=== PATIENT | male | born 2000 | race African-American/Black ===

== ENCOUNTER 2022-11-29 00:50 | Inpatient (IN) | payer OTHER, SELFPAY ==
--- OUTSIDE RECORDS SUMMARY | 2022-11-29 00:52 | XMS_ITS | Continuity of Care Document ---
:1999 Author Organization [facility] Adult Address Unavailable , Care Team Providers Name Role Phone David Rodas Primary Care Physician Encounter [facility] [place] Date(s): 02/10/22 - 02/17/22 [facility] Encounter Diagnosis Acute diarrhea (Discharge Diagnosis) - 02/10/22 New onset seizure (Discharge Diagnosis) - 02/10/22 Attending Physician: Lev Herrera MD Allergies, Adverse Reactions, Alerts No Known Allergies Medications risperiDONE 1 mg oral tablet TAKE 1/2 TABLET BY MOUTH EVERY MORNING AND 1 TABLET EVERY NIGHT AT BEDTIME Start Date: 02/06/22 Status: Orderedsertraline 100 mg oral tablet TAKE 1 TABLET BY MOUTH TWICE DAILY IN THE MORNING AND AT BEDTIME Start Date: 02/06/22 Status: Ordered Problem List Condition Effective Dates Status Health Status Informant Anxiety(Confirmed) Active Bipolar illness(Confirmed) Active High triglycerides(Confirmed) Active Lactic acidosis(Confirmed) Active Obese class I(Confirmed) Active MDD (major depressive disorder), Active recurrent episode, mild(Confirmed) Seizure(Confirmed) Active Diagnosis Diagnosis Type Effective Dates Health Status Clinical In formant Service Acute diarrhea Discharge 02/10/22 Diagnosis New onset Discharge 02/10/22 seizure Diagnosis Vital Signs Most recent to oldest [Reference Range]: 1 2 Height 184 cm 184 cm (02/10/22 3:36 PM) (02/10/22 3:05 PM) Weight 112.3 kg (02/10/22 3:05 PM) Oxygen Saturation [94-100 %] 98 % (02/10/22 3:05 PM) Pulse Rate [55-90 bpm] 117 bpm *H* (02/10/22 3:05 PM) Body Mass Index [18.5-24.99] 33.17 *>HHI* (02/10/22 3:05 PM) Blood Pressure [90-138/55-84 mm Hg] 112/74 mm Hg 146/ 74 mm Hg (02/10/22 3:36 PM) *H* (02/10/22 3:05 PM) Blood pressure sites Arm, left (02/10/22 3:05 PM) Social History Social History Type Response Smoking Status Never (less than 100 in life time) entered on: 01/25/21 Sex
--- OUTSIDE RECORDS SUMMARY | 2022-11-29 00:53 | XMS_ITS | Continuity of Care Document ---
:1999 Author Organization [facility] Address [address] [place] [address]- Care Team Providers Name Role Phone David Rodas Primary Care Physician [place] [facility] [place] 10[place]28/22 [facility] [address] [place] [address]- Attending Physician: Nieves Morfin Admitting Physician: Nieves Morfin Referring Physician: Nieves Morfin Allergies, Adverse Reactions, Alerts No Known Allergies Medications benztropine 0.5 mg oral tablet 0.5 mg, 1, tablet, By Mouth, 2 times a day, TAKE ONE TABLET BY MOUTH TWO TIMES DAILY, # 60 tablet, Refills 0, Tot. Refills 0, Maintenance, 10/20/22 13:08:00 EST, Route to Pharmacy Electronically, [facility], Partial fill upon patient req... Start Date: 10/20/22 Status: Orderedergocalciferol 30408 iu oral capsule 50,000 International_Units, 1, capsule, By Mouth, Every week, # 12 capsule, Refills 0, Tot. Refills 0, Maintenance, 10/13/22 9:50:00 EST, Route to Pharmacy Electronically, [email or web address] #[id number], Partial fill upon patient request if the prescript... Start Date: 10/13/22 Stop Date: 01/05/23 Status: Orderedlansoprazole 30 mg oral enteric coated capsule 1 capsule = 30 mg, By Mouth, Daily, # 90 capsule, 0 Refills, Maintenance, 09/28/22 14:14:00 EST, EC Capsule, [email or web address] #[id number], Partial fill upon patient request if the prescription is for a schedule II opioid drug., 184, cm, 09/28/22 13:24:... Start Date: 09/28/22 Status: OrderedLORazepam 1 mg oral tablet 1 tablet = 1 mg, By Mouth, 2 times a day, PRN Anxiety, TAKE ONE TABLET BY MOUTH UP TO TWO TIMES DAILY NEEDED FOR ANXIETY, # 14 tablet, 0 Refills, Maintenance, 10/20/22 13:07:00 EST, [facility], Partial fill upon patient reques... Start Date: 10/20/22 Stop Date: 10/27/22 Status: OrderedOmeprazole By Mouth, Daily, OTC, 0 Refills, Maintenance, 09/19/22 8:30:00 EST, Partial fill upon patient request if the prescription is for a schedule II opioid drug. Start Date: 09/19/22 Status: OrderedPEG-3350 with Electrolytes (Eqv-NuLYTELY) oral powder for reconstitution See Instructions, Please follow instructions from GI; NOT the instructions in the package insert., #1 kit, 0 Refills, Maintenance, 09/28/22 14:14:00 EST, [facility] #[id number], Okay to substitute with any gallon bowel prep., Please follow instr... Start Date: 09/28/22 Status: OrderedrisperiDONE 1 mg oral tablet 0.5 mg, 0.5, tablet, By Mouth, 2 times a day, TAKE HALF TABLET (0.5MG) BY MOUTH TWO TIMES DAILY, # 14 tablet, Refills 1, Tot. Refills 1, Maintenance, 10/20/22 13:56:00 EST, Route to Pharmacy Electronically, [facility], Partial fill upon... Start Date: 10/20/22 Stop Date: 11/17/22 Status: Orderedsertraline 50 mg oral tablet 1 tablet = 50 mg, By Mouth, Daily, TAKE ONE TABLET BY MOUTH DAILY, # 14 tablet, 1 Refills, Maintenance, 10/20/22 13:07:00 EST, Tablet, [facility], Partial fill upon patient request if theprescription is for a schedule II opioid drug.,... Start Date: 10/20/22 Stop Date: 11/17/22 Status: Ordered Problem List Condition Confirmation Course Effective Dates Status Health I nformant Status Anxiety Confirmed Active Bipolar illness Confirmed Active COVID-191 Confirmed 10/20/22 Active High triglycerides Confirmed Active Lactic acidosis Confirmed Active MDD (major Confirmed Active depressive disorder), recurrent episode, mild Seizure Confirmed Active 1Problem added by Discern Expert Social History Social History Type Response Smoking Status Never (less than 100 in life time) entered on: 01/25/21 Sex Patient Care team information Care Team PersonnelName: David Rodas Position: S PCO Associate Professional Member Role: PCP Address: Address: [address] [place] [address] Care Team Related PersonsName: STEVEN HERRERA Address: home [address] Name: STEVEN HERRERA Address: home [address] [place] [address] Name: DEZ HERRERA Address: [place] [address]
--- OUTSIDE RECORDS SUMMARY | 2022-11-29 00:53 | XMS_ITS | Continuity of Care Document ---
:1999 Author Organization [facility] Adult Address Unavailable , Care Team Providers Name Role Phone David Rodas Primary Care Physician [place] [facility] [place] 03/28/22 - 04/27/22 [facility] Allergies, Adverse Reactions, Alerts No Known Allergies [...] disorder), Active recurrent episode, mild(Confirmed) Seizure(Confirmed) Active Social History Social History Type Response Smoking Status Never (less than 100 in life time) entered on: 01/25/21 Sex
--- OUTSIDE RECORDS SUMMARY | 2022-11-29 00:53 | XMS_ITS | Continuity of Care Document ---
:1999 Author Organization [facility] Address [address] [place] [address]- Care Team Providers Name Role Phone David Rodas Primary Care Physician [place] [facility] [place] 11/12/22 [facility] [address] [place] [address]- [place] Allergies, Adverse Reactions, Alerts No Known Allergies Medications benztropine 0.5 mg oral tablet 0.5 mg, 1, tablet, By Mouth, 2 times a day, TAKE ONE TABLET BY MOUTH TWO TIMES DAILY, # 60 tablet, Refills 0, Tot. Refills 0, Maintenance, 10/20/22 13:08:00 EST, Route to Pharmacy Electronically, [facility], Partial fill upon patient req... Start Date: 10/20/22 Status: Orderedergocalciferol 84574 iu oral capsule 50,000 International_Units, 1, capsule, By Mouth, Every week, # 12 capsule, Refills 0, Tot. Refills 0, Maintenance, 10/13/22 9:50:00 EST, Route to Pharmacy Electronically, [facility] #[id number], Partial fill upon patient request if the prescript... Start Date: 10/13/22 Stop Date: 01/05/23 Status: Orderedlansoprazole 30 mg oral enteric coated capsule 1 capsule = 30 mg, By Mouth, Daily, # 90 capsule, 0 Refills, Maintenance, 09/28/22 14:14:00 EST, EC Capsule, [facility] #[id number], Partial fill upon patient request if the [...] 0 Refills, Maintenance, 10/20/22 13:07:00 EST, [facility] fill upon patient reques... Start [...] kit, 0 Refills, Maintenance, 09/28/22 14:14:00 EST, [facility] #[id number], Okay to substitute with any gallon bowel prep., Please follow instr... Start Date: 09/28/22 Status: OrderedrisperiDONE 1 mg oral tablet 0.5 mg, 0.5, tablet, By Mouth, 2 times a day, TAKE HALF TABLET (0.5MG) BY MOUTH TWO TIMES DAILY, # 14 tablet, Refills 1, Tot. Refills 1, Maintenance, 10/20/22 13:56:00 EST, Route to Pharmacy Electronically, [facility], Partial fill upon... Start Date: 10/20/22 Stop Date: 11/17/22 Status: Orderedsertraline 50 mg oral tablet 1 tablet = 50 mg, By Mouth, Daily, TAKE ONE TABLET BY MOUTH DAILY, # 14 tablet, 1 Refills, Maintenance, 10/20/22 13:07:00 EST, Tablet, [facility], Partial fill upon patient request [...] information Care Team PersonnelName: David Rodas Position: [facility] PCO Associate Professional Member Role: PCP Address: Address: [address] [place] [address] Care Team Related PersonsName: STEVEN HERRERA Address: [address] Name: STEVEN HERRERA Address: home [address] [place] [address] Name: DEZ HERRERA Address: home [address] [place] [address]
--- OUTSIDE RECORDS SUMMARY | 2022-11-29 00:53 | XMS_ITS | Continuity of Care Document ---
:1999 Author Organization [facility] Address [address] [place] [address]- Care Team Providers Name Role Phone David Rodas Primary Care Physician En[place] [facility] [place] Date(s): 02/05/22 - 02/07/[address] [address] Encounter Diagnosis Altered mental status (Final) - 02/05/22 Lactic acidosis (Final) - 02/05/22 Tachycardia (Final) - 02/05/22 Discharge Disposition: A-D/C Home Attending Physician: Harmony HICKEY, Fallon Murphy Admitting Physician: Cristal Larsen MD Referring Physician: Not on Staff, Referring MD Allergies, Adverse Reactions, Alerts No Known [...] disorder), Active recurrent episode, mild(Confirmed) Seizure(Confirmed) Active Results Orders for Microbiology Reports Name Date Blood Culture 02/05/22 Blood Culture #2 02/05/22 Microbiology Reports TEST:Blood Culture, Second Order STATUS:Unauthenticated BODY SITE: SOURCE:Blood COLLECTED DATE/TIME:02/05/22 8:56 PMBlood Culture, Second Order SPECIMEN DESCRIPTION : BLOOD RTHND SPECIAL REQUESTS : NONE CULTURE : NO GROWTH AFTER 48 HOURS REPORT STATUS : PRELIMINARY REPORT TEST:Blood Culture STATUS:Unauthenticated BODY SITE: SOURCE:Blood COLLECTED DATE/TIME:02/05/22 8:50 PMBlood Culture SPECIMEN DESCRIPTION : BLOOD LTHND SPECIAL REQUESTS : NONE CULTURE : NO GROWTH AFTER 48 HOURS REPORT STATUS : PRELIMINARY REPORT Radiology Reports Exam Date Time Procedure Performing Provider Status 02/05/22 8:30 PM Chest Portable Maria Victoria Maher; Auth (Verified) Notes:(Chest Portable) Reason For Exam: Shortness of BreathRESULT: Chest Portable Chest Portable Hx of Present Illness: 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 FINDINGS: LINES AND TUBES: None. LUNGS AND PLEURA: Low lung volumes with mild basilar atelectasis. Lungs are otherwise clear with no consolidation. No pleural effusion. No pneumothorax. HEART, MEDIASTINUM AND OLEG: Heart is normal in size. Normal upper mediastinal and hilar contour. BONES AND SOFT TISSUES: No acute abnormality. IMPRESSION: No acute abnormality. WSN: [id number] Ordering Physician: Baljinder Abreu Dictated By: Guero Shah MD Dictated Date/Time: 02/05/22 8:36 pm Reviewed By: Guero Shah MD Signed By: Guero Shah MD Signed Date/Time: 02/05/22 8:36 pm Transcribed By: ELIE Transcribed Date/Time: 02/05/22 8:33 pm Vital Signs Most recent to oldest 1 2 3 [Reference Range]: Height 184 cm 184 cm (02/07/22 4:37 PM) (02/07/22 4:25 PM) Weight 113 kg (02/07/22 4:25 PM) Oxygen Saturation [94-100 %] 97 % 97 % 98 % (02/07/22 4:37 PM) (02/07/22 3:20 PM) (02/07/22 12: 39 PM) Pulse Rate [55-90 bpm] 96 bpm 134 bpm 114 bpm *H* *H* *H* (02/07/22 4:37 PM) (02/07/22 3:20 PM) (02/07/22 12: 39 PM) Body Mass Index [18.5-24.99] 33.38 *>HHI* (02/07/22 4:25 PM) Blood Pressure [90-138/55-84 130/62 mm Hg 140/93 mm Hg 146 /96 mm Hg mm Hg] (02/07/22 4:37 PM) *H* *H* (02/07/22 3:20 PM) (02/07/22 12:39 PM) Respiratory Rate [16-30 18 br/min 24 br/min 20 br/mi n br/min] (02/07/22 4:37 PM) (02/07/22 3:20 PM) (02/07/22 12: 39 PM) Temperature [96.8-100.4 DegF] 98.3 DegF 98.2 DegF 98 .1 DegF (02/07/22 4:37 PM) (02/07/22 12:39 PM) (02/07/22 9: 30 AM) Mode of Delivery (Oxygen) Room air Room air Room a ir (02/07/22 4:37 PM) (02/07/22 3:20 PM) (02/07/22 12: 39 PM) Blood pressure sites Arm, left Arm, right Arm, right (02/07/22 4:37 PM) (02/07/22 3:20 PM) (02/07/22 12: 39 PM) Temperature Route Oral Oral Oral (02/07/22 4:37 PM) (02/07/22 12:39 PM) (02/07/22 9: 30 AM) Dry Weight 113 kg (02/07/22 4:25 PM) Social History Social History Type Response Smoking Status Never (less than 100 in life time) entered on: 01/25/21 Sex
--- OUTSIDE RECORDS SUMMARY | 2022-11-29 00:53 | XMS_ITS | Continuity of Care Document ---
:1999 Author Organization [facility] Address [address] [place] [address]- Care Team Providers Name Role Phone David Rodas Primary Care Physician Encounter [facility] [place] Date(s): 10/12/22 - 11/11/22 [facility] [address] [place] [address]- Attending Physician: Nieves Morfin Admitting Physician: Nieves Morfin Referring Physician: [id number] Allergies, Adverse Reactions, Alerts No Known Allergies Medications benztropine 0.5 mg oral tablet 0.5 mg, 1, tablet, By Mouth, 2 times a day, TAKE ONE TABLET BY MOUTH TWO TIMES DAILY, # 60 tablet, Refills 0, Tot. Refills 0, Maintenance, 10/20/22 13:08:00 EST, Route to Pharmacy Electronically, [facility], Partial fill upon patient req... Start Date: 10/20/22 Status: Orderedergocalciferol 32421 iu oral capsule 50,000 International_Units, 1, capsule, By Mouth, Every week, # 12 capsule, Refills 0, Tot. Refills 0, Maintenance, 10/13/22 9:50:00 EST, Route to Pharmacy Electronically, [facility] #[id number], Partial fill upon patient request if the prescript... Start Date: 10/13/22 Stop Date: 01/05/23 Status: Orderedlansoprazole 30 mg oral enteric coated capsule 1 capsule = 30 mg, By Mouth, Daily, # 90 capsule, 0 Refills, Maintenance, 09/28/22 14:14:00 EST, EC Capsule, [facility] #[id number], Partial fill upon patient request if the [...] 0 Refills, Maintenance, 10/20/22 13:07:00 EST, [facility] fill upon patient reques... Start [...] kit, 0 Refills, Maintenance, 09/28/22 14:14:00 EST, [facility][id number], Okay to substitute with any gallon bowel prep., Please follow instr... Start Date: 09/28/22 Status: OrderedrisperiDONE 1 mg oral tablet 0.5 mg, 0.5, tablet, By Mouth, 2 times a day, TAKE HALF TABLET (0.5MG) BY MOUTH TWO TIMES DAILY, # 14 tablet, Refills 1, Tot. Refills 1, Maintenance, 10/20/22 13:56:00 EST, Route to Pharmacy Electronically, [facility], Partial fill upon... Start Date: 10/20/22 Stop Date: 11/17/22 Status: Orderedsertraline 50 mg oral tablet 1 tablet = 50 mg, By Mouth, Daily, TAKE ONE TABLET BY MOUTH DAILY, # 14 tablet, 1 Refills, Maintenance, 10/20/22 13:07:00 EST, Tablet, [facility], Partial fill upon patient request if theprescription is for a schedule II opioid drug.,... Start Date: 10/20/22 Stop Date: 11/17/22 Status: Ordered Problem List Condition Confirmation Course Effective Dates Status Health I nformant Status Anxiety Confirmed Active Bipolar illness Confirmed Active COVID-191 Confirmed 1/6/23 Active High triglycerides Confirmed Active Lactic acidosis Confirmed Active MDD (major Confirmed Active depressive disorder), recurrent episode, mild Seizure Confirmed Active 1Problem added by Discern Expert Social History Social History Type Response Smoking Status Never (less than 100 in life time) entered on: 01/25/21 Sex Note Event Display: Laboratory Result Scanned Authored Date: MR Brain Event Display: MRI Head Authored Date: Patient Care team information Care Team PersonnelName: David Rodas Position: [facility] PCO Associate Professional Member Role: PCP Address: Address: [address] [place] [address] Care Team Related PersonsName: STEVEN HERRERA Address: home [address] [place] [address] [place] Name: STEVEN HERRERA Address: home [address] [place] [address] Name: DEZ HERRERA Address: [place] [address]
--- OUTSIDE RECORDS SUMMARY | 2022-11-29 00:53 | XMS_ITS | Continuity of Care Document ---
:1999 Author Organization [facility] Address [address] [place] [address]- Care Team Providers Name Role Phone David Rodas Primary Care Physician Encounter [facility] [place] Date(s): 01/25/21 - 02/01/21 [facility] [address] [place] [address]- Encounter Diagnosis BMI 33.0-33.9,adult (Discharge Diagnosis) - 01/25/21 Annual visit for general adult medical examination with abnormal findings (Discharge Diagnosis) - 01/25/21 MDD (major depressive disorder), recurrent episode, mild (Discharge Diagnosis) - 01/25/21 Tinea versicolor (Discharge Diagnosis) - 01/25/21 High triglycerides (Discharge Diagnosis) - 01/25/21 Attending Physician: David Rodas Allergies, Adverse Reactions, Alerts Substance Reaction Severity Status NKA Active Medications ketoconazole 2% topical shampoo 1 application, Topically, Once, Three times weekly, # 120 mL, 0 Refills, Soft Stop, 01/25/21 8:31:00[facility][id number], Partial fill upon patient request if the prescription is for a schedule II opioid drug., 1 application Topi... Start Date: 01/25/21 Status: OrderedraNITIdine 150 mg oral capsule 1 capsule = 150 mg, By Mouth, 2 times a day, # 28 capsule, 0 Refills, Maintenance, 11/30/18 11:46:18EST, Capsule Start Date: 11/30/18 Stop Date: 12/14/18 Status: OrderedrisperiDONE 1 mg oral tablet 1 mg, 1, tablet, By Mouth, 2 times a day, # 60 tablet, Refills 0, Maintenance, 01/25/21 8:20:00 EDT,Partial fill upon patient request if the prescription is for a schedule II opioid drug. Start Date: 01/25/21 Status: Orderedsertraline 100 mg oral tablet 1 tablet = 100 mg, By Mouth, 2 times a day, 0 Refills, Maintenance, 01/25/21 8:06:00 EDT, Partial fill upon patient request if the prescription is for a schedule II opioid drug. Start Date: 01/25/21 Status: OrderedZofran 4 mg oral tablet 1 tablet = 4 mg, By Mouth, Every 8 hours, PRN Nausea & Vomiting, # 9 tablet, 0 Refills, Maintenance, 11/30/18 11:45:49 EST, Tablet Start Date: 11/30/18 Stop Date: 12/03/18 Status: Ordered Problem List Condition Effective Dates Status Health Status Informant High triglycerides(Confirmed) Active MDD (major depressive disorder), Active recurrent episode, mild(Confirmed) Diagnosis Diagnosis Type Effective Dates Health Clinical Infor mant Status Service Tinea versicolor Discharge 01/25/21 Diagnosis High triglycerides Discharge 01/25/21 Diagnosis MDD (major Discharge 01/25/21 depressive Diagnosis disorder), recurrent episode, mild BMI 33.0-33.9,adult Discharge 01/25/21 Diagnosis Annual visit for Discharge 01/25/21 general adult Diagnosis medical examination with abnormal findings Vital Signs Most recent to oldest [Reference Range]: 1 Height 183.5 cm (01/25/21 8:03 AM) Weight 114.2 kg (01/25/21 8:03 AM) Oxygen Saturation [94-100 %] 98 % (01/25/21 8:03 AM) Pulse Rate [55-90 bpm] 113 bpm *H* (01/25/21 8:03 AM) Body Mass Index [18.5-24.99] 33.92 *>HHI* (01/25/21 8:03 AM) Blood Pressure [90-138/55-84 mm Hg] 120/82 mm Hg (01/25/21 8:03 AM) Mode of Delivery (Oxygen) Room air (01/25/21 8:03 AM) Blood pressure sites Arm, right (01/25/21 8:03 AM) Social History Social History Type Response Smoking Status Never (less than 100 in life time) entered on: 01/25/21 Sex
--- OUTSIDE RECORDS SUMMARY | 2022-11-29 00:53 | XMS_ITS | Continuity of Care Document ---
:1999 Author Organization [facility] Address [address] [place] [address]- Care Team Providers Name Role Phone David Rodas Primary Care Physician [place] [facility] [place] 10[place]22 [facility] [address] [place] [address]- Allergies, Adverse Reactions, Alerts No Known Allergies Medications benztropine 0.5 mg oral tablet 0.5 mg, 1, tablet, By Mouth, 2 times a day, TAKE ONE TABLET BY MOUTH TWO TIMES DAILY, # 60 tablet, Refills 0, Tot. Refills 0, Maintenance, 10/20/22 13:08:00 EST, Route to Pharmacy Electronically, [facility], Partial fill upon patient req... Start Date: 10/20/22 Status: Orderedergocalciferol 67466 iu oral capsule 50,000 International_Units, 1, capsule, By Mouth, Every week, # 12 capsule, Refills 0, Tot. Refills 0, Maintenance, 10/13/22 9:50:00 EST, Route to Pharmacy Electronically, [facility] #[id number], Partial fill upon patient request if the prescript... Start Date: 10/13/22 Stop Date: 01/05/23 Status: Orderedlansoprazole 30 mg oral enteric coated capsule 1 capsule = 30 mg, By Mouth, Daily, # 90 capsule, 0 Refills, Maintenance, 09/28/22 14:14:00 EST, EC Capsule, [facility] #[id number], Partial fill upon patient request if the [...] 0 Refills, Maintenance, 10/20/22 13:07:00 EST, [facility], Partial fill upon patient reques... [...] kit, 0 Refills, Maintenance, 09/28/22 14:14:00 EST, [facility] #[id number], Okay to substitute with any gallon bowel prep., Please follow instr... Start Date: 09/28/22 Status: OrderedrisperiDONE 1 mg oral tablet 0.5 mg, 0.5, tablet, By Mouth, 2 times a day, TAKE HALF TABLET (0.5MG) BY MOUTH TWO TIMES DAILY, # 14 tablet, Refills 1, Tot. Refills 1, Maintenance, 10/20/22 13:56:00 EST, Route to Pharmacy Electronically, [facility], Partial fill upon... Start Date: 10/20/22 Stop Date: 11/17/22 Status: Orderedsertraline 50 mg oral tablet 1 tablet = 50 mg, By Mouth, Daily, TAKE ONE TABLET BY MOUTH DAILY, # 14 tablet, 1 Refills, Maintenance, 10/20/22 13:07:00 EST, Tablet, [facility], Partial fill upon patient [...] information Care Team PersonnelName: David Rodas Position: [facility] PCO Associate Professional Member Role: PCP Address: Address: [address] [place] [address] Care Team Related PersonsName: STEVEN HERRERA Address: home [address] Name: STEVEN HERRERA Address: home [address] [place] [address] Name: DEZ HERRERA Address: [place] [address]
--- OUTSIDE RECORDS SUMMARY | 2022-11-29 00:53 | XMS_ITS | Continuity of Care Document ---
:1999 Author Organization [facility] Address [address] [place] [address]- Care Team Providers Name Role Phone David Rodas Primary Care Physician Encounter [facility] Date(s): 02/15/22 - 04/22/[address] [address] Attending Physician: Lev Herrera MD Admitting Physician: Lev Herrera MD Referring Physician: Lev Herrera MD Allergies, Adverse Reactions, [...]
--- OUTSIDE RECORDS SUMMARY | 2022-11-29 00:53 | XMS_ITS | Continuity of Care Document ---
:2000 Author Organization [facility] Adult Address [address] [place] [address]- Care Team Providers Name Role Phone David Rodas Primary Care Physician Encounter [facility] Date(s): 10/12/22 - 10/19/22 [facility] Adult [address] [place] [address]- Encounter Diagnosis Weight loss (Discharge Diagnosis) - 10/12/22 MDD (major depressive disorder), recurrent episode, mild (Discharge Diagnosis) - 10/12/22 Bipolar illness (Discharge Diagnosis) - 10/12/22 Anxiety (Discharge Diagnosis) - 10/12/22 Attending Physician: David Rodas Allergies, Adverse Reactions, Alerts No Known Allergies Medications ergocalciferol 40650 iu oral capsule 50,000 International_Units, 1, capsule, By Mouth, Every week, # 12 capsule, Refills 0, Tot. Refills 0, Maintenance, 10/13/22 9:50:00 EST, Route to Pharmacy Electronically, [facility][id number], Partial fill upon patient request if the prescript... Start Date: 10/13/22 Stop Date: 01/05/23 Status: Orderedlansoprazole 30 mg oral enteric coated capsule 1 capsule = 30 mg, By Mouth, Daily, # 90 capsule, 0 Refills, Maintenance, 09/28/22 14:14:00 EST, EC Capsule, [facility] #[id number], Partial fill upon patient request if the prescription is for a schedule II opioid drug., 184, cm, 09/28/22 13:24:... Start Date: 09/28/22 Status: OrderedOmeprazole By Mouth, Daily, OTC, 0 Refills, Maintenance, 09/19/22 8:30:00 EST, Partial fill upon patient request if the prescription is for a schedule II opioid drug. Start Date: 09/19/22 Status: OrderedPEG-3350 with Electrolytes (Eqv-NuLYTELY) oral powder for reconstitution See Instructions, Please follow instructions from GI; NOT the instructions in the package insert., #1 kit, 0 Refills, Maintenance, 09/28/22 14:14:00 [facility] #[id number], Okay to substitute with any gallon bowel prep., Please follow instr... Start Date: 09/28/22 Status: OrderedrisperiDONE 1 mg oral tablet TAKE 1/2 TABLET BY MOUTH EVERY MORNING AND 1 TABLET EVERY NIGHT AT BEDTIME Start Date: 02/06/22 Status: Orderedsertraline 100 mg oral tablet TAKE 1 TABLET BY MOUTH TWICE DAILY IN THE MORNING AND AT BEDTIME Start Date: 02/06/22 Status: Ordered Problem List Condition Confirmation Course Effective [facility] Health I nformant Status Anxiety Confirmed Active Bipolar illness Confirmed Active High triglycerides Confirmed Active Lactic acidosis Confirmed Active MDD (major Confirmed Active depressive disorder), recurrent episode, mild Seizure Confirmed Active Diagnosis Diagnosis Type Effective [facility] Health Clinical Infor [facility] Status Service Weight loss Discharge 10/12/22 Diagnosis MDD (major Discharge 10/12/22 depressive Diagnosis disorder), recurrent episode, mild Bipolar illness Discharge 10/12/22 Diagnosis Anxiety Discharge 10/12/22 Diagnosis Vital Signs Most recent to oldest [Reference Range]: 1 Height 185 cm (10/12/22 8:54 AM) Weight 98.5 kg (10/12/22 8:54 AM) Oxygen Saturation [94-100 %] 97 % (10/12/22 8:54 AM) Pulse Rate [55-90 bpm] 109 bpm *H* (10/12/22 8:54 AM) Body Mass Index [18.5-24.99 kg/m2] 28.78 kg/m2 *H* (10/12/22 8:54 AM) Blood Pressure [90-138/55-84 mm Hg] 110/72 mm Hg (10/12/22 8:54 AM) Temperature [96.8-100.4 DegF] 96.7 DegF *L* (10/12/22 8:54 AM) Mode of Delivery (Oxygen) Room air (10/12/22 8:54 AM) Blood pressure sites Arm, left (10/12/22 8:54 AM) Social History Social History Type Response Smoking Status Never (less than 100 in life time) entered on: 01/25/21 Sex Note Mona Lora MA: PERFORM, SIGN, VERIFY Event Display: Patient Education/Instruction Authored Date: [id number] [facility] *SUSAN Camarena Clinical Summary Name ABIODUN MACK Age 22 Years 2000 PCP Ayo LONG, David Piedra PCP Visit Date 10/12/2022 08:52:00 Additional Instructions: Scheduled Appointments?? Future Appointments ?[facility]??Endoscopy??&??Minor??Procedures ?[address]??[place],??[place],??[address] ?Phone:??[phone]?Fax:??-- ?Appt. Date:??11/16/2022?10:30 AM ?Scheduled Provider:??[email or web address] Follow-Up Instructions ?? Diagnosis Medications: Please continue your medications until treatment is completed or stopped by your provider. Discuss any questions related to medications with your provider. Medications to Continue with No Changes These medications were not printed or sent to your pharmacy Lansoprazole (lansoprazole 30 mg oral enteric coated capsule) 1 capsule Oral Daily. Refills: 0. Next Dose: Omeprazole Oral Daily. OTC. Next Dose: PEG Electrolyte Solution (PEG-3350 with Electrolytes (Eqv-NuLYTELY) oral powder for reconstitution) Please follow instructions from GI; NOT the instructions in the package insert.. Refills: 0. Next Dose: Risperidone (risperiDONE 1 mg oral tablet) TAKE 1/2 TABLET BY MOUTH EVERY MORNING AND 1 TABLET EVERYNIGHT AT BEDTIME. Next Dose: Sertraline (sertraline 100 mg oral tablet) TAKE 1 TABLET BY MOUTH TWICE DAILY IN THE MORNING AND AT BEDTIME. Next Dose: Allergy Info:?? NKA Medications Given This Visit Future Orders ?No future orders Vital Signs Height 185 cm Weight 98.5 kg BMI 28.78 kg/m2 Blood Pressure 110 mm Hg/72 mm Hg Temperature 96.7 DegF Pulse Rate 109 bpm Respiratory Rate 02 Sat Mode of Delivery 97 %/Room air You can now view a summary of your hospital visit from the comfort of your home through a free online portal called [employer]. [employer] is a website that allows you to securely view yourmedical information including discharge summary, medications and follow-up visits. ??You can also send a secure electronic message to your doctor???s office to request appointments, renew medications or just ask a question. You can enroll at [email or web address] or register during your next office visit. Disclaimer:?? The information provided is of a general nature and is intended to be used in conjunction with the recommendations and advice of your health care practitioner. ??Every effort has been made to ensure that the information provided is accurate and complete at the time it is provided to you however, as your needs change, or, as new ??information becomes available, different or additional instructions may be required. If you have questions, please consult with your primary care provider or pharmacist, as appropriate.??This information is not intended to serve as substitution for assessment and evaluation by a qualified health care provider. If you do not have a primary care provider, you may find a [facility] provider by calling [facility] [employer] [facility] at [phone]. For information about the plan of care including goals and instructions for your diagnosis, please see the patient education orders section of this document. Patient Education Materials?? The content of this educational material or handout may have been modified, supplemented, or adaptedfrom its original content and format to support your individualized medical care. Patient Care team information Care Team PersonnelName: David Rodas Position: [facility] PCO Associate Professional Member Role: PCP Address: Address: [address] [place] [address] Care Team Related PersonsName: STEVEN HERRERA Address: home [address] Name: STEVEN HERRERA Address: home [address] [place] [id number] Name: DEZ HERRERA Address: [place] [address]
--- OUTSIDE RECORDS SUMMARY | 2022-11-29 00:53 | XMS_ITS | Continuity of Care Document ---
:2000 Author Organization [facility] Adult Address Unavailable , Care Team Providers Name Role Phone David Rodas Primary Care Physician Encounter [facility] Date(s): 02/14/22 - 03/16/22 [facility] Allergies, Adverse Reactions, Alerts No Known [...]
--- OUTSIDE RECORDS SUMMARY | 2022-11-29 00:53 | XMS_ITS | Continuity of Care Document ---
:2000 Author Organization [facility] Address [address] [place] [address]- Care Team Providers Name Role Phone David Rodas Primary Care Physician Encounter [facility] Date(s): 11/27/22 - 11/27/[address] [address]- Discharge Disposition: A-D/C Walkout Attending Physician: Not on Staff, Attending MD Admitting Physician: Not on Staff, Admitting MD Referring Physician: Not on Staff, Referring MD Allergies, Adverse Reactions, Alerts Substance Reaction Severity Status Pork Skin rash Severe Active Medications benztropine 0.5 mg oral tablet 0.5 mg, 1, tablet, By Mouth, 2 times a day, TAKE ONE TABLET BY MOUTH TWO TIMES DAILY, # 60 tablet, Refills 0, Tot. Refills 0, Maintenance, 10/20/22 13:08:00 EST, Route to Pharmacy Electronically, [facility], Partial fill upon patient req... Start Date: 10/20/22 Status: Orderedergocalciferol 94918 iu oral capsule 50,000 International_Units, 1, capsule, By Mouth, Every week, # 12 capsule, Refills 0, Tot. Refills 0, Maintenance, 10/13/22 9:50:00 EST, Route to Pharmacy Electronically, [facility] #[id number], Partial fill upon patient request if the prescript... Start Date: 10/13/22 Stop Date: 01/05/23 Status: Orderedlansoprazole 30 mg oral enteric coated capsule 1 capsule = 30 mg, By Mouth, Daily, # 90 capsule, 0 Refills, Maintenance, 09/28/22 14:14:00 EST, EC Capsule, [facility] #[id number], Partial fill upon patient request if the [...] 0 Refills, Maintenance, 10/20/22 13:07:00 EST, Tablet, [facility], Partial fill upon patient reques... [...] kit, 0 Refills, Maintenance, 09/28/22 14:14:00 EST, [facility] #[id number], Okay to substitute with any gallon bowel prep., Please follow instr... Start Date: 09/28/22 Status: OrderedrisperiDONE 1 mg oral tablet 0.5 mg, 0.5, tablet, By Mouth, 2 times a day, TAKE HALF TABLET (0.5MG) BY MOUTH TWO TIMES DAILY, # 14 tablet, Refills 1, Tot. Refills 1, Maintenance, 10/20/22 13:56:00 EST, Route to Pharmacy Electronically, [facility], Partial fill upon... Start Date: 10/20/22 Stop Date: 11/17/22 Status: Orderedsertraline 50 mg oral tablet 1 tablet = 50 mg, By Mouth, Daily, TAKE ONE TABLET BY MOUTH DAILY, # 14 tablet, 1 Refills, Maintenance, 10/20/22 13:07:00 EST, Tablet, [facility], Partial fill upon patient [...] Confirmed Active 1Problem added by Discern Expert Vital Signs Most recent to oldest [Reference Range]: 1 2 Oxygen Saturation [94-100 %] 99 % 99 % (11/27/22 10:13 PM) (11/27/22 8:51 PM) Pulse Rate [55-90 bpm] 128 bpm 125 bpm *H* *H* (11/27/22 10:13 PM) (11/27/22 8:51 PM) Blood Pressure [90-138/55-84 mm Hg] 129/85 mm Hg (11/27/22 10:13 PM) Respiratory Rate [16-30 br/min] 16 br/min (11/27/22 8:51 PM) Temperature [96.8-100.4 DegF] 99.0 DegF (11/27/22 10:13 PM) Mode of Delivery (Oxygen) Room air (11/27/22 8:51 PM) Blood pressure sites Arm, left (11/27/22 10:13 PM) Temperature Route Oral (11/27/22 10:13 PM) Social History Social History Type Response Smoking Status Never (less than 100 in life time) entered on: 01/25/21 Sex Patient Care team information Care Team PersonnelName: David Rodas Position: S PCO Associate Professional Member Role: PCP Address: Address: [address] [place] [id number] Care Team Related PersonsName: STEVEN HERRERA Address: home [address] [place] [address] Name: STEVEN HERRERA Address: home [address] [place] [address] Name: DEZ HERRERA Address: home [address] [place] [address]
--- OUTSIDE RECORDS SUMMARY | 2022-11-29 00:53 | XMS_ITS | Continuity of Care Document ---
:2000 Author Organization [facility] Adult Address [address] [place] [address]- Care Team Providers Name Role Phone David Rodas Primary Care Physician Encounter [facility] Date(s): 10/27/20 - 02/24/21 [facility] [address] [place] [address]- Attending Physician: Lev Herrera MD Referring Physician: David Rodas Allergies, Adverse Reactions, Alerts Substance Reaction Severity Status NKA Active Medications ketoconazole 2% topical shampoo 1 application, Topically, Once, Three times weekly, # 120 mL, 0 Refills, Soft Stop, 01/25/21 8:31:00EDT, [facility][id number], Partial fill upon patient request if the [...] (major depressive disorder), Active recurrent episode, mild(Confirmed) Social History Social History Type Response Smoking Status Never (less than 100 in life time) entered on: 01/25/21 Sex
--- OUTSIDE RECORDS SUMMARY | 2022-11-29 00:53 | XMS_ITS | Continuity of Care Document ---
:[address] [facility] Address [address] [place] [address]- Care Team Providers Name Role Phone David Rodas Primary Care Physician Encounter [facility] Date(s): 09/20/22 - 10/20/[address] [facility] [address] [place] [address]- Allergies, Adverse Reactions, Alerts No Known Allergies Medications benztropine 0.5 mg oral tablet 0.5 mg, 1, tablet, By Mouth, 2 times a day, TAKE ONE TABLET BY MOUTH TWO TIMES DAILY, # 60 tablet, Refills 0, Tot. Refills 0, Maintenance, 10/20/22 13:08:00 EST, Route to Pharmacy Electronically, [facility], Partial fill upon patient req... Start Date: 10/20/22 Status: Orderedergocalciferol 93541 iu oral capsule 50,000 International_Units, 1, capsule, By Mouth, Every week, # 12 capsule, Refills 0, Tot. Refills 0, Maintenance, 10/13/22 9:50:00 EST, Route to Pharmacy Electronically, [facility] #[id number], Partial fill upon patient request if the prescript... Start Date: 10/13/22 Stop Date: 01/05/23 Status: Orderedlansoprazole 30 mg oral enteric coated capsule 1 capsule = 30 mg, By Mouth, Daily, # 90 capsule, 0 Refills, Maintenance, 09/28/22 14:14:00 EST, EC Capsule, [facility] #[id number], Partial fill upon patient request if the [...] 0 Refills, Maintenance, 10/20/22 13:07:00 EST, [facility], Partial fill upon patient reques... [...] kit, 0 Refills, Maintenance, 09/28/22 14:14:00 EST, [facility] #[id number], Okay to substitute with any gallon bowel prep., Please follow instr... Start Date: 09/28/22 Status: OrderedrisperiDONE 1 mg oral tablet 0.5 mg, 0.5, tablet, By Mouth, 2 times a day, TAKE HALF TABLET (0.5MG) BY MOUTH TWO TIMES DAILY, # 14 tablet, Refills 1, Tot. Refills 1, Maintenance, 10/20/22 13:56:00 EST, Route to Pharmacy Electronically, [facility], Partial fill upon... Start Date: 10/20/22 Stop Date: 11/17/22 Status: Orderedsertraline 50 mg oral tablet 1 tablet = 50 mg, By Mouth, Daily, TAKE ONE TABLET BY MOUTH DAILY, # 14 tablet, 1 Refills, Maintenance, 10/20/22 13:07:00 EST, Tablet, [facility], Partial fill upon patient [...] information Care Team PersonnelName: David Rodas Position: [facility] PCO Associate Professional Member Role: PCP Address: Address: [address] [place] [address] Care Team Related PersonsName: STEVEN HERRERA Address: home [address] Name: STEVEN HERRERA Address: home [address] [place] [address] Name: DEZ HERRERA Address: [place] [address]
--- OUTSIDE RECORDS SUMMARY | 2022-11-29 00:53 | XMS_ITS | Continuity of Care Document ---
:2000 Author Organization [facility] Adult Address Unavailable , Care Team Providers Name Role Phone David Rodas Primary Care Physician [facility] Date(s): 03/08/22 - 04/07/22 [facility] Attending Physician: Nieves Morfin Admitting Physician: Nieves [...]
--- OUTSIDE RECORDS SUMMARY | 2022-11-29 00:53 | XMS_ITS | Continuity of Care Document ---
:2000 Author Organization [facility] Address [address] [place] [address]- Care Team Providers Name Role Phone David Rodas Primary Care Physician Encounter [facility] Date(s): 10/19/22 - 10/20/[address] [address]- Discharge Disposition: A-D/C Home Attending Physician: Bentley Degroot DO Admitting Physician: Bentley Degroot DO Referring Physician: Not on Staff, Referring MD Allergies, Adverse Reactions, Alerts No Known Allergies Medications benztropine 0.5 mg oral tablet 0.5 mg, 1, tablet, By Mouth, 2 times a day, TAKE ONE TABLET BY MOUTH TWO TIMES DAILY, # 60 tablet, Refills 0, Tot. Refills 0, Maintenance, 10/20/22 13:08:00 EST, Route to Pharmacy Electronically, [facility], Partial fill upon patient req... Start Date: 10/20/22 Status: Orderedergocalciferol 77772 iu oral capsule 50,000 International_Units, 1, capsule, By Mouth, Every week, # 12 capsule, Refills 0, Tot. Refills 0, Maintenance, 10/13/22 9:50:00 EST, Route to Pharmacy Electronically, [facility] #[id number], Partial fill upon patient request if the prescript... Start Date: 10/13/22 Stop Date: 01/05/23 Status: Orderedlansoprazole 30 mg oral enteric coated capsule 1 capsule = 30 mg, By Mouth, Daily, # 90 capsule, 0 Refills, Maintenance, 09/28/22 14:14:00 EST, EC Capsule, [facility] #[id number], Partial fill upon patient request if the [...] 0 Refills, Maintenance, 10/20/22 13:07:00 EST, [facility], Partial fill upon patient reques... Start [...] kit, 0 Refills, Maintenance, 09/28/22 14:14:00 EST, [facility] #[id number], Okay to substitute with any gallon bowel prep., Please follow instr... Start Date: 09/28/22 Status: OrderedrisperiDONE 1 mg oral tablet 0.5 mg, 0.5, tablet, By Mouth, 2 times a day, TAKE HALF TABLET (0.5MG) BY MOUTH TWO TIMES DAILY, # 14 tablet, Refills 1, Tot. Refills 1, Maintenance, 10/20/22 13:56:00 EST, Route to Pharmacy Electronically, [facility], Partial fill upon... Start Date: 10/20/22 Stop Date: 11/17/22 Status: Orderedsertraline 50 mg oral tablet 1 tablet = 50 mg, By Mouth, Daily, TAKE ONE TABLET BY MOUTH DAILY, # 14 tablet, 1 Refills, Maintenance, 10/20/22 13:07:00 EST, Tablet, [facility], Partial fill upon patient request [...] Confirmed Active 1Problem added by Discern Expert Results Radiology Reports Exam Date Time Procedure Performing Provider Status 10/19/22 11:11 PM Chest Portable Carly Obando; Auth (Ve rified) Notes:(Chest Portable) Reason For Exam: Shortness of BreathRESULT: Chest Portable Chest Portable HX OF PRESENT ILLNESS: Pt and mother ambulated to room. Pt reports vague abd pain, I can't feel my heart beat. Pt reports that he has been seen at [facility] for mental health. Pt reports SI with no plan. Pt reports SI x 4 days but it's not all the time only once a day. COMPARISON: None. FINDINGS: Note that the right lower lateral hemithorax is omitted from the study. LINES AND TUBES: None. LUNGS AND PLEURA: Clear lungs. Normal pulmonary vascularity. No pleural effusion. No pneumothorax. HEART, MEDIASTINUM AND OLEG: Heart is normal in size. Normal mediastinal and hilar contour. BONES AND SOFT TISSUES: No acute abnormality. IMPRESSION: No acute cardiopulmonary process. I have personally reviewed the images and I agree with this report. WSN: [id number] Ordering Physician: Ash Reed Dictated By: Isra Paulino MD Dictated Date/Time: 10/19/22 11:28 p Reviewed By: Mark aDy MD Signed By: Mark Day MD Signed Date/Time: 10/19/22 11:33 pm Transcribed By: ELIE Transcribed Date/Time: 10/19/22 11:20 pm Vital Signs Most recent to oldest [Reference 1 2 3 Range]: Height 185 cm 185 cm 185 cm (10/20/22 4:00 PM) (10/20/22 8:44 AM) (10/19/22 8:11 P M) Weight 99 kg 99 kg 99 kg (10/20/22 4:00 PM) (10/20/22 8:44 AM) (10/19/22 8:11 P M) Oxygen Saturation [94-100 %] 98 % 100 % 100 % (10/20/22 4:00 PM) (10/20/22 8:44 AM) (10/20/22 6:05 A M) Pulse Rate [55-90 bpm] 101 bpm 110 bpm 124 bpm *H* *H* *H* (10/20/22 4:00 PM) (10/20/22 8:44 AM) (10/20/22 6:05 A M) Body Mass Index [18.5-24.99 kg/m2] 28.93 kg/m2 28.93 kg/m2 28.93 kg/m2 *H* *H* *H* (10/20/22 4:00 PM) (10/20/22 8:44 AM) (10/19/22 8:11 P M) Blood Pressure [90-138/55-84 mm 133/85 mm Hg 145/80 mm Hg 146/90 mm Hg Hg] (10/20/22 4:00 PM) *H* *H* (10/20/22 8:44 AM) (10/20/22 6:05 AM ) Respiratory Rate [16-30 br/min] 16 br/min 18 br/min 18 br/min (10/20/22 4:00 PM) (10/20/22 8:44 AM) (10/20/22 6:05 A M) Temperature [96.8-100.4 DegF] 98.2 DegF 99.0 DegF 98 .7 DegF (10/20/22 4:00 PM) (10/20/22 8:44 AM) (10/20/22 6:05 A M) Mode of Delivery (Oxygen) Room air Room air Room a ir (10/20/22 4:00 PM) (10/20/22 8:44 AM) (10/20/22 6:05 A M) Blood pressure sites Arm, left Arm, left Arm, left (10/20/22 4:00 PM) (10/20/22 8:44 AM) (10/20/22 6:05 A M) Temperature Route Oral Oral Oral (10/20/22 4:00 PM) (10/20/22 8:44 AM) (10/20/22 6:05 A M) Dry Weight 99 kg 99 kg 99 kg (10/20/22 4:00 PM) (10/20/22 8:44 AM) (10/19/22 8:11 P M) Weight Obtained Via Standing scale (10/19/22 8:11 PM) Dry Weight Obtained Via Standing scale (10/19/22 8:11 PM) Social History Social History Type Response Smoking Status Never (less than 100 in life time) entered on: 01/25/21 Sex Note Bentley Degroot DO: PERFORM, SIGN, VERIFY Event Display: Patient Education Handout Authored Date: [id number] Portable XR Chest Views [facility]ers[facility] , CIS S: TRANSCRIBE Mark Day MD: VERIFY Isra Paulino MD: SIGN Event Display: Result: Authored Date: [id number] Chest Portable HX OF PRESENT ILLNESS: Pt and mother ambulated to room. Pt reports vague abd pain, I can't feel my heart beat. Pt reports that he has been seen at [facility] for mental health. Pt reports SI with no plan. Pt reports SI x 4 days but it's not all the time only once a day. COMPARISON: None. FINDINGS: Note that the right lower lateral hemithorax is omitted from the study. LINES AND TUBES: None. LUNGS AND PLEURA: Clear lungs. Normal pulmonary vascularity. No pleural effusion. No pneumothorax. HEART, MEDIASTINUM AND OLEG: Heart is normal in size. Normal mediastinal and hilar contour. BONES AND SOFT TISSUES: No acute abnormality. IMPRESSION: No acute cardiopulmonary process. I have personally reviewed the images and I agree with this report. WSN: [id number] Ordering Physician: Ash Reed Dictated By: Isra Paulino MD Dictated Date/Time: 10/19/22 11:28 p Reviewed By: Mark Day MD Signed By: Mark Day MD Signed Date/Time: 10/19/22 11:33 pm Transcribed By: ELIE Transcribed Date/Time: 10/19/22 11:20 pm Patient Care team information Care Team PersonnelName: David Rodas Position: [facility] PCO Associate Professional Member Role: PCP Address: Address: [address] [place] [address]- Name: *[facility], ED Attending Position: [facility] ED Attendings Patient Name: Bentley Degroot DO Position: [facility] ED Medicine MD Member Role: Admitting Physician Address: Address: [address] [place] [address] [place] [address]- Name: Edita Lozano RN Position: [facility] ED RN W/OE and Tasks Member Role: Patient Care Provider Name: Kyle Bustamante Position: S ED TA [facility] Member Role: Window Machine Operator Care Team Related PersonsName: STEVEN HERRERA Address: [place] [address] [place] Name: STEVEN HERRERA Address: [address] [address] Name: DEZ HERRERA Address: [place] [address]
--- OUTSIDE RECORDS SUMMARY | 2022-11-29 00:53 | XMS_ITS | Continuity of Care Document ---
:2000 Author Organization [facility] Address [address] [place] [address]- Care Team Providers Name Role Phone David Rodas Primary Care Physician Encounter [facility] Date(s): 10/12/22 - 11/11/22 [facility] [address] [place] [address]- [place] Allergies, Adverse Reactions, Alerts No Known Allergies Medications benztropine 0.5 mg oral tablet 0.5 mg, 1, tablet, By Mouth, 2 times a day, TAKE ONE TABLET BY MOUTH TWO TIMES DAILY, # 60 tablet, Refills 0, Tot. Refills 0, Maintenance, 10/20/22 13:08:00 EST, Route to Pharmacy Electronically, [facility], Partial fill upon patient req... Start Date: 10/20/22 Status: Orderedergocalciferol 53383 iu oral capsule 50,000 International_Units, 1, capsule, By Mouth, Every week, # 12 capsule, Refills 0, Tot. Refills 0, Maintenance, 10/13/22 9:50:00 EST, Route to Pharmacy Electronically, [facility] #[id number], Partial fill upon patient request if the prescript... Start Date: 10/13/22 Stop Date: 01/05/23 Status: Orderedlansoprazole 30 mg oral enteric coated capsule 1 capsule = 30 mg, By Mouth, Daily, # 90 capsule, 0 Refills, Maintenance, 09/28/22 14:14:00 EST, EC Capsule, [facility] #[id number], Partial fill upon patient request if the [...] 0 Refills, Maintenance, 10/20/22 13:07:00 EST, Tablet, [facility], Partial fill upon patient reques... [...] kit, 0 Refills, Maintenance, 09/28/22 14:14:00 EST, [facility] #[id number], Okay to substitute with any gallon bowel prep., Please follow instr... Start Date: 09/28/22 Status: OrderedrisperiDONE 1 mg oral tablet 0.5 mg, 0.5, tablet, By Mouth, 2 times a day, TAKE HALF TABLET (0.5MG) BY MOUTH TWO TIMES DAILY, # 14 tablet, Refills 1, Tot. Refills 1, Maintenance, 10/20/22 13:56:00 EST, Route to Pharmacy Electronically, [facility], Partial fill upon... Start Date: 10/20/22 Stop Date: 11/17/22 Status: Orderedsertraline 50 mg oral tablet 1 tablet = 50 mg, By Mouth, Daily, TAKE ONE TABLET BY MOUTH DAILY, # 14 tablet, 1 Refills, Maintenance, 10/20/22 13:07:00 EST, Tablet, [facility], Partial fill upon patient [...] information Care Team PersonnelName: David Rodas Position: [facility] PCO Associate Professional Member Role: PCP Address: Address: [address] [place] [address] Care Team Related PersonsName: STEVEN HERRERA Address: home [address] Name: STEVEN HERRERA Address: home [address] [place] [address] Name: DEZ HERRERA Address: home [address] [place] [address]
--- OUTSIDE RECORDS SUMMARY | 2022-11-29 00:53 | XMS_ITS | Continuity of Care Document ---
:2000 Author Organization [facility] Adult Address [address] [place] [address]- Care Team Providers Name Role Phone David Rodas Primary Care Physician Encounter [id number] Date(s): 01/25/21 - 02/24/[address] [facility] [address] [place] [address]- Attending Physician: Nieves Morfin Admitting Physician: Nieves Morfin Referring Physician: AdmtrNieves Allergies, Adverse Reactions, Alerts Substance Reaction Severity Status NKA Active Medications ketoconazole 2% topical shampoo 1 application, Topically, Once, Three times weekly, # 120 mL, 0 Refills, Soft Stop, 01/25/21 8:31:00EDT, [facility] #[id number], Partial fill upon patient request if the [...]
--- OUTSIDE RECORDS SUMMARY | 2022-11-29 00:53 | XMS_ITS | Continuity of Care Document ---
:2000 Author Organization [facility] Adult Address [address] [place] [address]- Care Team Providers Name Role Phone David Rodas Primary Care Physician Encounter [facility] Date(s): 09/21/22 - 10/21/22 [facility] [address] [place] [address]- Allergies, Adverse Reactions, Alerts No Known Allergies Medications benztropine 0.5 mg oral tablet 0.5 mg, 1, tablet, By Mouth, 2 times a day, TAKE ONE TABLET BY MOUTH TWO TIMES DAILY, # 60 tablet, Refills 0, Tot. Refills 0, Maintenance, 10/20/22 13:08:00 EST, Route to Pharmacy Electronically, [facility], Partial fill upon patient req... Start Date: 10/20/22 Status: Orderedergocalciferol 30163 iu oral capsule 50,000 International_Units, 1, capsule, By Mouth, Every week, # 12 capsule, Refills 0, Tot. Refills 0, Maintenance, 10/13/22 9:50:00 EST, Route to Pharmacy Electronically, [facility] #[id number], Partial fill upon patient request if the prescript... Start Date: 10/13/22 Stop Date: 01/05/23 Status: Orderedlansoprazole 30 mg oral enteric coated capsule 1 capsule = 30 mg, By Mouth, Daily, # 90 capsule, 0 Refills, Maintenance, 09/28/22 14:14:00 EST, EC Capsule, [facility][id number], Partial fill upon patient request if the [...] 0 Refills, Maintenance, 10/20/22 13:07:00 EST, [facility] fill upon patient reques... Start [...] kit, 0 Refills, Maintenance, 09/28/22 14:14:00 EST, [facility] #[id number], Okay to substitute with any gallon bowel prep., Please follow instr... Start Date: 09/28/22 Status: OrderedrisperiDONE 1 mg oral tablet 0.5 mg, 0.5, tablet, By Mouth, 2 times a day, TAKE HALF TABLET (0.5MG) BY MOUTH TWO TIMES DAILY, # 14 tablet, Refills 1, Tot. Refills 1, Maintenance, 10/20/22 13:56:00 EST, Route to Pharmacy Electronically, [facility], Partial fill upon... Start Date: 10/20/22 Stop Date: 11/17/22 Status: Orderedsertraline 50 mg oral tablet 1 tablet = 50 mg, By Mouth, Daily, TAKE ONE TABLET BY MOUTH DAILY, # 14 tablet, 1 Refills, Maintenance, 10/20/22 13:07:00 EST, Tablet, [facility], Partial fill upon patient request [...] information Care Team PersonnelName: David Rodas Position: [facility] PCO Associate Professional Member Role: PCP Address: Address: [address] [place] [address] Care Team Related PersonsName: STEVEN HERRERA Address: home [address] Name: STEVEN HERRERA Address: home [address] [place] [address] Name: DEZ HERRERA Address: [place] [address]
--- OUTSIDE RECORDS SUMMARY | 2022-11-29 00:53 | XMS_ITS | Continuity of Care Document ---
:2000 Author Organization [facility] Address [address] [place] [address]- Care Team Providers Name Role Phone Mukesh HICKEY, Sandi Craven Primary Care Physician Encounter [facility] Date(s): 11/20/19 - 11/20/[address] [address]- [facility] Attending Physician: Ruthann Correia MD Allergies, Adverse Reactions, Alerts Substance Reaction Severity Status NKA Active Medications raNITIdine 150 mg oral capsule 1 capsule = 150 mg, By Mouth, 2 times a day, # 28 capsule, 0 Refills, Maintenance, 11/30/18 11:46:18EST, Capsule Start Date: 11/30/18 Stop Date: 12/14/18 Status: OrderedZofran 4 mg oral tablet 1 tablet = 4 mg, By Mouth, Every 8 hours, PRN Nausea & Vomiting, # 9 tablet, 0 Refills, Maintenance, 11/30/18 11:45:49 EST, Tablet Start Date: 11/30/18 Stop Date: 12/03/18 Status: Ordered
--- OUTSIDE RECORDS SUMMARY | 2022-11-29 00:53 | XMS_ITS | Continuity of Care Document ---
:2000 Author Organization [facility] Adult Address Unavailable , Care Team Providers Name Role Phone David Rodas Primary Care Physician Encounter [facility] Date(s): 03/08/22 - 03/15/22 [facility] [place] [facility] Encounter Diagnosis Seizure (Discharge Diagnosis) - 03/08/22 Attending Physician: David Rodas Allergies, Adverse Reactions, [...] Diagnosis Type Effective Dates Health Status Clinical Serv ice Informant Seizure Discharge 03/08/22 Diagnosis Vital Signs Most recent to oldest [Reference Range]: 1 2 Height 184 cm 184 cm (03/08/22 1:58 PM) (03/08/22 1:39 PM) Weight 111.5 kg (03/08/22 1:39 PM) Oxygen Saturation [94-100 %] 98 % (03/08/22 1:39 PM) Pulse Rate [55-90 bpm] 106 bpm *H* (03/08/22 1:39 PM) Body Mass Index [18.5-24.99] 32.93 *>HHI* (03/08/22 1:39 PM) Blood Pressure [90-138/55-84 mm Hg] 123/78 mm Hg 98/6 2 mm Hg (03/08/22 1:58 PM) (03/08/22 1:39 PM) Temperature [96.8-100.4 DegF] 96.9 DegF (03/08/22 1:39 PM) Mode of Delivery (Oxygen) Room air (03/08/22 1:39 PM) Blood pressure sites Arm, right (03/08/22 1:39 PM) Social History Social History Type Response Smoking Status Never (less than 100 in life time) entered on: 01/25/21 Sex
--- OUTSIDE RECORDS SUMMARY | 2022-11-29 00:53 | XMS_ITS | Continuity of Care Document ---
:2000 Author Organization [facility] Address [address] [place] [address]- Care Team Providers Name Role Phone David Rodas Primary Care Physician [id number] Date(s): 09/19/22 - 09/26/22 [facility] [address] [place] [address]- Encounter Diagnosis Weight loss (Discharge Diagnosis) - 09/19/22 Regurgitation of food (Discharge Diagnosis) - 09/19/22 MDD (major depressive disorder), recurrent episode, mild (Discharge Diagnosis) - 09/19/22 Bipolar illness (Discharge Diagnosis) - 09/19/22 Venereal disease screening (Discharge Diagnosis) - 09/19/22 Attending Physician: David Rodas Allergies, Adverse Reactions, Alerts No Known Allergies Medications Omeprazole By Mouth, Daily, OTC, 0 Refills, Maintenance, 09/19/22 8:30:00 EST, Partial fill upon patient request if the prescription is for a schedule II opioid drug. Start Date: 09/19/22 Status: OrderedrisperiDONE 1 mg oral tablet TAKE [...] triglycerides Confirmed Active Lactic acidosis Confirmed Active Obese class I Confirmed Active MDD (major Confirmed Active depressive disorder), recurrent episode, mild Seizure Confirmed Active Diagnosis Diagnosis Type Effective Dates Health Clinical Infor mant Status Service Weight loss Discharge 09/19/22 Diagnosis Regurgitation of Discharge 09/19/22 food Diagnosis MDD (major Discharge 09/19/22 depressive Diagnosis disorder), recurrent episode, mild Bipolar illness Discharge 09/19/22 Diagnosis Venereal disease Discharge 09/19/22 screening Diagnosis Vital Signs Most recent to oldest [Reference Range]: 1 2 Height 184 cm 184 cm (09/19/22 8:53 AM) (09/19/22 8:25 AM) Weight 102.3 kg (09/19/22 8:25 AM) Oxygen Saturation [94-100 %] 98 % (09/19/22 8:25 AM) Pulse Rate [55-90 bpm] 115 bpm *H* (09/19/22 8:25 AM) Body Mass Index [18.5-24.99 kg/m2] 30.22 kg/m2 *>HHI* (09/19/22 8:25 AM) Blood Pressure [90-138/55-84 mm Hg] 124/83 mm Hg 127/ 91 mm Hg (09/19/22 8:53 AM) (09/19/22 8:25 AM) Mode of Delivery (Oxygen) Room air (09/19/22 8:25 AM) Blood pressure sites Arm, right (09/19/22 8:25 AM) Social History Social History Type Response Smoking Status Never (less than 100 in life time) entered on: 01/25/21 Sex Note Mona Lora MA: PERFORM, SIGN, VERIFY Event Display: Patient Education/Instruction Authored Date: [id number] [facility] *SUSAN Camarena Clinical Summary Name ABIODUN MACK Age 22 Years 2000 PCP Ayo LONG, David Piedra PCP Visit Date 09/19/2022 08:18:00 Additional Instructions: Scheduled Appointments?? Future Appointments ?No Future Appointments Scheduled Follow-Up Instructions ?? Diagnosis Abnormal weight loss; Vomiting, unspecified Medications: Please continue your medications until treatment is completed or stopped by your provider. Discuss any questions related to medications with your provider. Medications to Continue with No Changes These medications were not printed or sent to your pharmacy Omeprazole Oral Daily. OTC. Next Dose: Risperidone (risperiDONE 1 mg oral tablet) TAKE 1/2 TABLET BY MOUTH EVERY MORNING AND 1 TABLET EVERYNIGHT AT BEDTIME. Next Dose: Sertraline (sertraline 100 mg oral tablet) TAKE 1 TABLET BY MOUTH TWICE DAILY IN THE MORNING AND AT BEDTIME. Next Dose: Allergy Info:?? NKA Medications Given This Visit Future Orders ?No future orders Vital Signs Height 184 cm Weight 102.3 kg BMI 30.22 kg/m2 Blood Pressure 124 mm Hg/83 mm Hg Temperature Pulse Rate 115 bpm Respiratory Rate 02 Sat Mode of Delivery 98 %/Room air You can now view a summary of your hospital visit from the comfort of your home through a free online portal called [employer]. [employer] is a website that allows you to securely view yourmedical information including discharge summary, medications and follow-up visits. ??You can also send a secure electronic message to your doctor???s office to request appointments, renew medications or just ask a question. You can enroll at [email or web address] or register during your next office visit. [...] primary care provider, you may find a [facility] provider by calling [facility] [employer] at [phone]. For information about the plan of care including goals and instructions for your diagnosis, please see the patient education orders section of this document. Patient Education Materials?? The content of this educational material or handout may have been modified, supplemented, or adaptedfrom its original content and format to support your individualized medical care. Patient Care team information Care Team PersonnelName: David Rodas Position: [facility] PCO Associate Professional Member Role: PCP Address: Address: [address] [place] [address]- Care Team Related PersonsName: STEVEN HERRERA Address: [place] [address] [place] Name: STEVEN HERRERA Address: [place] [address] [place] Name: DEZ HERRERA Address: [place] [address]
--- NOTE | 2022-11-29 04:27 | PC.ADMIT ---
PT IS A 22 YEAR OLD HAITIAN SPEAKING MALE TRANSFERRED TO [facility] FROM [facility] AFTER SELF PRESENTING TOT [facility]. PT IS ALERT AND ORIENTED X 4. CONDITIONAL VOLUNTARY. 15 MINUTE SAFETY CHECKS. STRUCTURED GROUP. COVID NEGATIVE. LABS UNREMARKABLE. TOXICOLOGY SCREEN NEGATIVE. DOES NOT DRINK ALCOHOL. DOES NOT USE TOBACCO. PT HAS NO TRAUMA HISTORY. PT SELF PRESENTED DUE TO INCREASED AH THAT ARE GETTING LOUDER. PT SAYS THE VOICES ARE BOTH GOOD AND BAD . HE HAS NOT SLEPT IN 4 DAYS REPORTED BY HIS MOTHER. PT HAS DIFFICULTY COMPREHENDING INFORMATION AND DIFFICULTY WRITING/READING. PTS SPEECH IS SLOW. EYE CONTACT GOOD. PT STATED I DONT KNOW FOR MANY QUESTIONS OF THE ADMISSION INCLUDING HIS SAFETY TOOL ASSESSMENT. MOST OF THE INFORMATION FROM ADMISSION WAS RECEIVED FROM [facility] ASSESSMENT WITH INFORMATION GIVEN BY HIS MOTHER. PT GAVE VERBAL CONSENT TO RN FOR RELEASES BUT COULD NOT SIGN PAPERS HE HAS A HARD TIME DOING SO. PT REPORTS HE GETS BETTER THEN DOESNT . PT HAS BEEN MEDICATION COMPLIANT. GOOD APPETITE. POOR SLEEP. POOR CONCENTRATION. GOOD INSIGHT AND JUDGMENT. PT REPORTS MODERATE ANXIETY BEING IN A NEW PLACE. DENIES DEPRESSION. DENIES SI OR HI AT THIS MOMENT. DENIES VISUAL HALLUCINATIONS. PT STATES HE FEELS SAFE ON THE UNIT. NO MEDICAL CONDITIONS PRESENT AT THIS TIME.
[2022-11-29 09:28] VITALS: BP 128/81; PULSE 106; RESP 16; TEMP 36.6; O2SAT 97
[2022-11-29] MEDS: LORazepam 1 MG TABLET PO ×2 (14:32→20:38)
[2022-11-29] MEDS: risperiDONE 2 MG TABLET PO ×2 (14:32→20:35)
--- NOTE | 2022-11-29 14:35 | HO.PSYADMNOT ---
HPI Date of Service: 11/29/22 Chief Complaint: Paranoid Schizophrenia Sources of Information: patient interviewed, chart reviewed and crisis/core team assessment reviewed Additional Sources of Information: Mother Rose Marie Amado [phone] Aunt Allie [phone] HPI Subjective Notes: Augustin Warning and Conditional Voluntary Healthcare Proxy: No Guardianship: No Medical Problems Affecting Mental Status: No Narrative: 22 yo male, history of schizoaffective disorder, depressed type, transferred from [facility]. Reports an increase in auditory perceptual alterations over the past week, with voices being louder, more frequent and more present. Reports good and bad voices with effect upon his sleeping and daily LOF. Mother reports pt is a quiet person, not very talkative at baseline. Currently family reports an increase in depressive sx, and perceptual alterations. Met with pt who presents with anxiety and fearfulness, stating it is feeling difficult for him to answer questions and we should ask his mother for answers. States he is very shy and prefers to be isolated. He reports feeling comfortable on the unit and safe, states he will be able to approach team if he is feeling unsafe. He does believe he needs a medicine change. He affirms auditory perceptual alterations, good and bad. Care discussed with pt's mom. Pt first diagnosed in [address] [facility]. He had a decline last year after stopping meds between ?April-Aug and was admitted to [facility] in October. Sertraline and Risperdal were augmented with Benztropine and Lorazepam. Pt had COVID and declined again after ~3 weeks, while fully med compliant. Medically, pt will complain of heart fluttering . This is usually a sx of anxiety. Past Psychiatric History: IP: 2017[place] 2022-[facility] OP: Dr. Kevin Cadet and [facility]: denies Medical Evaluation Reviewed: Yes [facility] Medical History (Updated 11/29/22 @ 15:01 by Sisi Mendoza APRN) Schizoaffective disorder Narrative: Pt denies Mother denies Family History: anxiety Social History: I cannot answer these now. Substance History: no history Trauma History: denies Diagnostics Vital Signs (24Hr): Vital Signs - 24 hr 11/29/22 09:28 Temperature 98 F Pulse Rate 106 H Respiratory Rate 16 Blood Pressure 128/81 Pulse Oximetry 97 Oxygen Delivery Method Room Air Labs Labs: WBC 11.3 BUN 5 TSH 1.34 COVID- negative Urine Tox-negative UA- negative EKG EKG Comment: [facility]- Sinus Rhythm with no acute ST changes Tachycardia on ER admit to [facility] Meds/Allergies Meds Home Medications Medication Instructions Recorded Confirmed Type acetaminophen 650 mg tablet 650 mg PO Q6H PRN Pain 11/29/22 11/29/22 History benztropine 0.5 mg tablet 1 mg PO 11/29/22 History hydroxyzine HCl 50 mg tablet 50 mg PO Q6H PRN Anxiety 11/29/22 11/29/22 History ibuprofen 400 mg tablet 400 mg PO Q8H PRN Pain 11/29/22 11/29/22 History lorazepam 1 mg tablet 1 mg PO Q8H PRN Anxiety 11/29/22 11/29/22 History melatonin 10 mg tablet 9 mg PO DAILY 11/29/22 11/29/22 History risperidone 1 mg tablet (Risperdal) 1 mg PO BID 11/29/22 11/29/22 History risperidone 1 mg tablet (Risperdal) 1 mg PO BID PRN Agitation 11/29/22 11/29/22 History sertraline 50 mg tablet 50 mg PO BID 11/29/22 11/29/22 History trazodone 50 mg tablet 25 mg PO DAILY PRN Insomnia 11/29/22 11/29/22 History Allergies Allergies Allergy/AdvReac Type Severity Reaction Status Date / Time Pork/Porcine Containing Allergy Unknown Verified 11/29/22 00:56 Products Mental Status Exam Mental Status Exam Patient Appearance: Fatigued Patient Orientation: Person, Place, Time and Situation Level of Consciousness: Restless and Alert Patient Behavior: Guarded, Talkative, Cooperative, Suspicious, Anxious, Fearful, Fatigued, Distractible and Poor Eye Contact Mood Description: Anxious and Apprehensive Affect Description: Anxious and Apprehensive Patient Cognition Impaired: Yes Ability to Follow Directions: Good Speech Pattern: Spontaneous Speech Memory Description: Episodic Impaired Hallucinations: Auditory Delusions: Being Controlled and Present Perceptual Disturbances: Depersonalization and Derealization Thought Process: Distracted and Rumination Thought Content: positive for Racing, positive for Circumstantial, positive for Perseveration, positive for Preoccupation, positive for Evasive, positive for Suicidal Ideation (denies) and positive for Homicidal Ideation (denies) Depressive Symptoms: Increased Anxiety, Insomnia, Diff. Making Decisions, Increased Irritability, Difficulty Sleeping, Loss of Int. in Activity, Hopelessness, Isolating-Friends/Family, Unhappiness, Increased Fatigue, Low Self Esteem, Loss of Energy and Difficulty Concentrating Abnormal Motor Activity Signs and Symptoms: Restlessness Judgement: Poor Assessment & Plan Assessment & Plan (1) Schizoaffective disorder: Status: Acute Code(s): F25.9 - Schizoaffective disorder, unspecified Plan 22 yo male, hx schizoaffective disorder, currently depressed, transferred from [facility]. Reports an increase in auditory perceptual alterations. Pt and family believe he may need a changes in medications to improve symptom management. Care discussed with pt's mother. Message left for Dr. Brown to discuss as well. Pt struggling with active sx this a.m. and distress Plan: Risperdal 2 mg now Lorazepam 1 mg now Mirtazapine 15 mg hs Increase Risperdal to 2 mg bid B12, Folate, Vit D, Lipids, A1C, EKG Patient educated on: therapeutic strategies Informed Consent: further education needed Reason for continued inpatient stay Substantial Risk for: rapid decompensation Statement Statement: I have reviewed the history and physical and performed a pertinent examination on my patient. No changes have occurred unless specified. If the History and Physical was not performed prior to admission, the Hospitalist's service will be consulted for completing the admission physical. Time Spent With Patient Time: Total time managing care of this patient today 45 minutes.
[2022-11-29 18:00] VITALS: BP 137/83; PULSE 73; RESP 18; TEMP 36.3; O2SAT 98
[2022-11-29] MEDS: Mirtazapine 15 MG TABLET PO (20:35)
[2022-11-29] MEDS: Sertraline HCL 50 MG TABLET PO (20:35)
[2022-11-29] MEDS: traZODone HCL 50 MG TABLET PO (20:36)
[2022-11-30 08:21] VITALS: BP 130/70; PULSE 106; RESP 18; TEMP 37.1; O2SAT 100
--- NOTE | 2022-11-30 09:00 | ECG_ITS ---
Test Reason : qtc check Blood Pressure : / mmHG Vent. Rate : 102 BPM Atrial Rate : 102 BPM P-R Int : 184 ms QRS Dur : 088 ms QT Int : 320 ms P-R-T Axes : 052 025 006 degrees QTc Int : 417 ms Sinus tachycardia Otherwise normal ECG No previous ECGs available Referred By: Sisi Mendoza Electronically Signed By:Óscar Laguerre
[2022-11-30] MEDS: Sertraline HCL 50 MG TABLET PO ×2 (09:18→20:40)
[2022-11-30] MEDS: risperiDONE 2 MG TABLET PO ×2 (09:18→20:40)
[2022-11-30 09:52] LABS: Cholesterol 152 mg/dL; HDL Cholesterol 23 mg/dL; LDL Cholesterol Calculated 98 mg/dl; Magnesium 2.3 mg/dL (1.6-2.6); Triglycerides 159 mg/dL
[2022-11-30 09:59] LABS: Estimated Average Glucose 80 mg/dL; Hemoglobin A1c % 4.4 %
[2022-11-30 10:20] LABS: Folate 5.6 ng/mL (> or = 4.0); Free T4 (Free Thyroxine) 0.98 ng/dL (0.71-1.85); Thyroid Stimulating Hormone 0.56 uIU/mL (0.32-4.0); Vitamin B12 317 pg/mL (200-900)
[2022-11-30 10:23] LABS: Folate 5.4 ng/mL (> or = 4.0); Vitamin B12 362 pg/mL (200-900)
--- NOTE | 2022-11-30 17:09 | HO.PSYCHPN ---
Subjective Subjective Date of Service: 11/30/22 Reason For Visit: Paranoid Schizophrenia Subjective Notes: Conditional Voluntary Healthcare Proxy: No Guardianship: No Interim History: Guarded and continues to respond to IS. Isolative. Met with pt in his room, reports he wants to go home. Tolerating medication increases of 2/15 and reports without SE. Wanting his phone, I-Pad and headphones. Discussed unit policy. Pt declines unit headphones at this time. Discussed allowing team to work with his sx, get some improvement before he goes home, he concurs. Diagnostics reviewed. Vitamin D supplement added as his level is 5. Medication Compliance: Yes Side effects from medications: No Attending Groups: No Review of Systems Acute medical concerns: No Medical Review of Systems: unchanged Mental Status Exam Mental Status Exam Patient Appearance: Fatigued Patient Orientation: Person, Place, Time and Situation Level of Consciousness: Restless and Alert Patient Behavior: Guarded, Talkative, Cooperative, Suspicious, Anxious, Fearful, Fatigued, Distractible and Poor Eye Contact Mood Description: Anxious and Apprehensive Affect Description: Anxious and Apprehensive Patient Cognition Impaired: Yes Ability to Follow Directions: Good Speech Pattern: Spontaneous Speech Memory Description: Episodic Impaired Hallucinations: Auditory Delusions: Being Controlled and Present Perceptual Disturbances: Depersonalization and Derealization Thought Process: Distracted and Rumination Thought Content: positive for Racing, positive for Circumstantial, positive for Perseveration, positive for Preoccupation, positive for Evasive, positive for Suicidal Ideation (denies) and positive for Homicidal Ideation (denies) Depressive Symptoms: Increased Anxiety, Insomnia, Diff. Making Decisions, Increased Irritability, Difficulty Sleeping, Loss of Int. in Activity, Hopelessness, Isolating-Friends/Family, Unhappiness, Increased Fatigue, Low Self Esteem, Loss of Energy and Difficulty Concentrating Abnormal Motor Activity Signs and Symptoms: Restlessness Judgement: Poor Diagnostics Vital Signs (24Hr): Vital Signs - 24 hr 11/29/22 18:00 11/30/22 08:21 Temperature 97.4 F 98.8 F Pulse Rate 73 106 H Respiratory Rate 18 18 Blood Pressure 137/83 130/70 Pulse Oximetry 98 100 Oxygen Delivery Method Room Air Room Air Labs Labs: Laboratory Results - last 48 hr 11/30/22 11/30/22 11/30/22 08:45 08:45 08:45 Estimat Average Glucose 80 Hemoglobin A1c % 4.4 Magnesium 2.3 Triglycerides 159 Cholesterol 152 LDL Cholesterol, Calc 98 HDL Cholesterol 23 Vitamin B12 317 362 25-OH Vitamin D Total 5.0 Folate 5.6 5.4 TSH 0.56 Free T4 0.98 Medications Medications Current Medications Acetaminophen (Acetaminophen 325 Mg Tablet) 650 mg PO Q6H PRN PRN Reason: Headache/Pain Mild Scale (1-3) Al Hydroxide/Mg Hydroxide (Magnesium Hydrox/Alum Hydrox 30 Ml Oral.Susp) 30 ml PO Q6H PRN PRN Reason: Heartburn/Nausea Benztropine Mesylate (Benztropine Mesylate 1 Mg Tablet) 1 mg PO BID PRN PRN Reason: Extrapyramidal Effects Hydroxyzine HCl (Hydroxyzine Hcl 25 Mg Tablet) 25 mg PO Q6H PRN PRN Reason: Anxiety Ibuprofen (Ibuprofen 400 Mg Tablet) 400 mg PO Q6H PRN PRN Reason: Pain, Mild (Pain Scale 1-3) Lorazepam (Lorazepam 1 Mg Tablet) 1 mg PO Q6H PRN PRN Reason: Anxiety Last Admin: 11/29/22 20:38 Dose: 1 mg Magnesium Hydroxide (Milk Of Magnesia 30 Ml Oral.Susp) 30 ml PO DAILY PRN PRN Reason: Constipation Mirtazapine (Mirtazapine 15 Mg Tablet) 15 mg PO BEDTIME REPLACED BY [facility] Last Admin: 11/29/22 20:35 Dose: 15 mg Risperidone (Risperidone 1 Mg Tablet) 1 mg PO BID PRN PRN Reason: psychosis Risperidone (Risperidone 2 Mg Tablet) 2 mg PO BID REPLACED BY [facility] Last Admin: 11/30/22 09:18 Dose: 2 mg Sertraline HCl (Sertraline Hcl 50 Mg Tablet) 50 mg PO BID REPLACED BY [facility] Last Admin: 11/30/22 09:18 Dose: 50 mg Trazodone HCl (Trazodone Hcl 50 Mg Tablet) 50 mg PO BEDTIME MRX1 PRN PRN Reason: Insomnia Last Admin: 11/29/22 20:36 Dose: 50 mg Allergies Allergies Allergy/AdvReac Type Severity Reaction Status Date / Time Pork/Porcine Containing Allergy Unknown Verified 11/29/22 00:56 Products Assessment & Plan Assessment & Plan (1) Schizoaffective disorder: Status: Acute Code(s): F25.9 - Schizoaffective disorder, unspecified Plan 22 yo male, hx schizoaffective disorder, currently depressed, transferred from [facility]. Reports an increase in auditory perceptual alterations. Pt and family believe he may need a changes in medications to improve symptom management. Care discussed with pt's mother. Message left for Dr. Brown to discuss as well. Pt struggling with active sx this a.m. and distress Plan: Risperdal 2 mg now Lorazepam 1 mg now Mirtazapine 15 mg hs Increase Risperdal to 2 mg bid B12, Folate, Vit D, Lipids, A1C, EKG 11/30/22: Vitamin D supplementation as level today is 5 Patient educated on: medication risk/benefits and therapeutic strategies Informed Consent: understands Reason for contiued inpatient stay Substantial Risk for: rapid decompensation Time Spent With Patient Time: Total time managing care of this patient today ____ minutes.
[2022-11-30 17:25] VITALS: BP 129/61; PULSE 100; TEMP 36.1; O2SAT 98
[2022-11-30] MEDS: Mirtazapine 15 MG TABLET PO (20:40)
[2022-12-01 08:30] VITALS: BP 111/74; PULSE 96; RESP 18; TEMP 36.2; O2SAT 98
--- NOTE | 2022-12-01 09:07 | HO.PSYCHPN ---
Subjective Subjective Date of Service: 12/01/22 Reason For Visit: Paranoid Schizophrenia Subjective Notes: Conditional Voluntary Healthcare Proxy: No Guardianship: No Medical Problems Affecting Mental Status: No Interim History: Pt remains isolative, not wanting to participate in milieu. Today, he is more relaxed in our meeting. States he feels the medicine increase is helping, less sx intensity. Asks to leave today. Discussed goals of more involvment in groups and improved control of symptoms prior to his discharge. Medication Compliance: Yes Side effects from medications: No Attending Groups: No Review of Systems Acute medical concerns: No Medical Review of Systems: unchanged Mental Status Exam Mental Status Exam Patient Appearance: Fatigued Patient Orientation: Person, Place, Time and Situation Level of Consciousness: Restless and Alert Patient Behavior: Guarded, Talkative, Cooperative, Suspicious, Anxious, Fearful, Fatigued, Distractible and Poor Eye Contact Mood Description: Anxious and Apprehensive Affect Description: Anxious and Apprehensive Patient Cognition Impaired: Yes Ability to Follow Directions: Good Speech Pattern: Spontaneous Speech Memory Description: Episodic Impaired Hallucinations: Auditory Delusions: Being Controlled and Present Perceptual Disturbances: Depersonalization and Derealization Thought Process: Distracted and Rumination Thought Content: positive for Racing, positive for Circumstantial, positive for Perseveration, positive for Preoccupation, positive for Evasive, positive for Suicidal Ideation (denies) and positive for Homicidal Ideation (denies) Depressive Symptoms: Increased Anxiety, Insomnia, Diff. Making Decisions, Increased Irritability, Difficulty Sleeping, Loss of Int. in Activity, Hopelessness, Isolating-Friends/Family, Unhappiness, Increased Fatigue, Low Self Esteem, Loss of Energy and Difficulty Concentrating Abnormal Motor Activity Signs and Symptoms: Restlessness Judgement: Poor Diagnostics Vital Signs (24Hr): Vital Signs - 24 hr 11/30/22 17:25 Temperature 96.9 F Pulse Rate 100 Blood Pressure 129/61 Pulse Oximetry 98 Oxygen Delivery Method Room Air Labs Labs: Laboratory Results - last 48 hr 11/30/22 11/30/22 11/30/22 08:45 08:45 08:45 Estimat Average Glucose 80 Hemoglobin A1c % 4.4 Magnesium 2.3 Triglycerides 159 Cholesterol 152 LDL Cholesterol, Calc 98 HDL Cholesterol 23 Vitamin B12 317 362 25-OH Vitamin D Total 5.0 Folate 5.6 5.4 TSH 0.56 Free T4 0.98 Medications Medications Current Medications Acetaminophen (Acetaminophen 325 Mg Tablet) 650 mg PO Q6H PRN PRN Reason: Headache/Pain Mild Scale (1-3) Al Hydroxide/Mg Hydroxide (Magnesium Hydrox/Alum Hydrox 30 Ml Oral.Susp) 30 ml PO Q6H PRN PRN Reason: Heartburn/Nausea Benztropine Mesylate (Benztropine Mesylate 1 Mg Tablet) 1 mg PO BID PRN PRN Reason: Extrapyramidal Effects Hydroxyzine HCl (Hydroxyzine Hcl 25 Mg Tablet) 25 mg PO Q6H PRN PRN Reason: Anxiety Ibuprofen (Ibuprofen 400 Mg Tablet) 400 mg PO Q6H PRN PRN Reason: Pain, Mild (Pain Scale 1-3) Lorazepam (Lorazepam 1 Mg Tablet) 1 mg PO Q6H PRN PRN Reason: Anxiety Last Admin: 11/29/22 20:38 Dose: 1 mg Magnesium Hydroxide (Milk Of Magnesia 30 Ml Oral.Susp) 30 ml PO DAILY PRN PRN Reason: Constipation Mirtazapine (Mirtazapine 15 Mg Tablet) 15 mg PO BEDTIME [facility] Last Admin: 11/30/22 20:40 Dose: 15 mg Risperidone (Risperidone 1 Mg Tablet) 1 mg PO BID PRN PRN Reason: psychosis Risperidone (Risperidone 2 Mg Tablet) 2 mg PO BID [facility] Last Admin: 11/30/22 20:40 Dose: 2 mg Sertraline HCl (Sertraline Hcl 50 Mg Tablet) 50 mg PO BID [facility] Last Admin: 11/30/22 20:40 Dose: 50 mg Trazodone HCl (Trazodone Hcl 50 Mg Tablet) 50 mg PO BEDTIME MRX1 PRN PRN Reason: Insomnia Last Admin: 11/29/22 20:36 Dose: 50 mg Vitamin D (Cholecalciferol (Vitamin D3) 10 Mcg Tablet) 10 mcg PO DAILY [facility] Allergies Allergies Allergy/AdvReac Type Severity Reaction Status Date / Time Pork/Porcine Containing Allergy Unknown Verified 11/29/22 00:56 Products Assessment & Plan Assessment & Plan (1) Schizoaffective disorder: Status: Acute Code(s): F25.9 - Schizoaffective disorder, unspecified Plan 22 yo male, hx schizoaffective disorder, currently depressed, transferred from [facility]. Reports an increase in auditory perceptual alterations. Pt and family believe he may need a changes in medications to improve symptom management. Care discussed with pt's mother. Message left for Dr. Brown to discuss as well. Pt struggling with active sx this a.m. and distress Plan: Risperdal 2 mg now Lorazepam 1 mg now Mirtazapine 15 mg hs Increase Risperdal to 2 mg bid B12, Folate, Vit D, Lipids, A1C, EKG 11/30/22: Vitamin D supplementation as level today is 5 12/01/22: Continue current regime and plan of care. Patient educated on: medication risk/benefits Informed Consent: further education needed Reason for contiued inpatient stay Substantial Risk for: rapid decompensation Time Spent With Patient Time: Total time managing care of this patient today 20 minutes.
[2022-12-01] MEDS: risperiDONE 2 MG TABLET PO ×2 (09:19→22:10)
[2022-12-01] MEDS: Cholecalciferol (Vitamin D3) 10 MCG TABLET PO (09:19)
[2022-12-01] MEDS: Sertraline HCL 50 MG TABLET PO ×2 (09:19→22:10)
[2022-12-01 16:55] VITALS: BP 114/67; PULSE 103; TEMP 36.4
[2022-12-01] MEDS: LORazepam 1 MG TABLET PO (16:55)
[2022-12-01] MEDS: Mirtazapine 15 MG TABLET PO (22:10)
[2022-12-02 08:56] VITALS: BP 117/68; PULSE 98; RESP 16; TEMP 37.2; O2SAT 98
[2022-12-02] MEDS: Cholecalciferol (Vitamin D3) 10 MCG TABLET PO (08:57)
[2022-12-02] MEDS: risperiDONE 2 MG TABLET PO ×2 (08:57→21:36)
[2022-12-02] MEDS: Sertraline HCL 50 MG TABLET PO ×2 (08:58→21:36)
--- NOTE | 2022-12-02 10:30 | HO.PSYCHPN ---
Subjective Subjective Date of Service: 12/02/22 Reason For Visit: Paranoid Schizophrenia Subjective Notes: Conditional Voluntary Healthcare Proxy: No Guardianship: No Medical Problems Affecting Mental Status: No Interim History: Patient was seen and discussed in rounds today. Records and plans were reviewed. He continues to be very isolative but interacts with one-word answers. No SI. Continues to be having response to internal stimuli. The staff for wondering about the possibility of using some p.r.n. he does have Ativan p.r.n. available and I will discuss with nursing staff to use it to see if it might be helpful with his anxiety and minimal interaction with others. No changes were made Review of Systems Review of Systems Yes all other systems are reviewed and are negative Mental Status Exam Mental Status Exam Narrative: In today's visit he was in bed. He is alert, pleasant and minimally interactive. Moderate eye contact. Affect is good constricted and flat. He appears to be responding to internal stimuli. No active SI. Cognitively he has paucity of thought. Judgment is marginal Diagnostics Vital Signs (24Hr): Vital Signs - 24 hr 12/01/22 16:55 12/02/22 08:56 Temperature 97.6 F 98.9 F Pulse Rate 103 H 98 Respiratory Rate 16 Blood Pressure 114/67 117/68 Pulse Oximetry 98 Oxygen Delivery Method Room Air Medications Medications Current Medications Acetaminophen (Acetaminophen 325 Mg Tablet) 650 mg PO Q6H PRN PRN Reason: Headache/Pain Mild Scale (1-3) Al Hydroxide/Mg Hydroxide (Magnesium Hydrox/Alum Hydrox 30 Ml Oral.Susp) 30 ml PO Q6H PRN PRN Reason: Heartburn/Nausea Benztropine Mesylate (Benztropine Mesylate 1 Mg Tablet) 1 mg PO BID PRN PRN Reason: Extrapyramidal Effects Hydroxyzine HCl (Hydroxyzine Hcl 25 Mg Tablet) 25 mg PO Q6H PRN PRN Reason: Anxiety Ibuprofen (Ibuprofen 400 Mg Tablet) 400 mg PO Q6H PRN PRN Reason: Pain, Mild (Pain Scale 1-3) Lorazepam (Lorazepam 1 Mg Tablet) 1 mg PO Q6H PRN PRN Reason: Anxiety Last Admin: 12/01/22 16:55 Dose: 1 mg Magnesium Hydroxide (Milk Of Magnesia 30 Ml Oral.Susp) 30 ml PO DAILY PRN PRN Reason: Constipation Mirtazapine (Mirtazapine 15 Mg Tablet) 15 mg PO BEDTIME [facility] Last Admin: 12/01/22 22:10 Dose: 15 mg Risperidone (Risperidone 1 Mg Tablet) 1 mg PO BID PRN PRN Reason: psychosis Risperidone (Risperidone 2 Mg Tablet) 2 mg PO BID [facility] Last Admin: 12/02/22 08:57 Dose: 2 mg Sertraline HCl (Sertraline Hcl 50 Mg Tablet) 50 mg PO BID [facility] Last Admin: 12/02/22 08:58 Dose: 50 mg Trazodone HCl (Trazodone Hcl 50 Mg Tablet) 50 mg PO BEDTIME MRX1 PRN PRN Reason: Insomnia Last Admin: 11/29/22 20:36 Dose: 50 mg Vitamin D (Cholecalciferol (Vitamin D3) 10 Mcg Tablet) 10 mcg PO DAILY [facility] Last Admin: 12/02/22 08:57 Dose: 10 mcg Allergies Allergies Allergy/AdvReac Type Severity Reaction Status Date / Time Pork/Porcine Containing Allergy Unknown Verified 11/29/22 00:56 Products Assessment & Plan Assessment & Plan (1) Schizoaffective disorder: Status: Acute Code(s): F25.9 - Schizoaffective disorder, unspecified Plan 22 yo male, hx schizoaffective disorder, currently depressed, transferred from [facility]. Reports an increase in auditory perceptual alterations. Pt and family believe he may need a changes in medications to improve symptom management. Care discussed with pt's mother. Message left for Dr. Brown to discuss as well. Pt struggling with active sx this a.m. and distress Plan: Risperdal 2 mg now Lorazepam 1 mg now Mirtazapine 15 mg hs Increase Risperdal to 2 mg bid B12, Folate, Vit D, Lipids, A1C, EKG 11/30/22: Vitamin D supplementation as level today is 5 12/01/22: Continue current regime and plan of care. 12/02: Continue current regimen and plans Reason for contiued inpatient stay Substantial Risk for: med/psych decompensation Time Spent With Patient Time: Total time managing care of this patient today ____ minutes.
[2022-12-02 21:30] VITALS: BP 110/63; PULSE 69; TEMP 36.9
[2022-12-02] MEDS: Mirtazapine 15 MG TABLET PO (21:36)
[2022-12-02] MEDS: LORazepam 1 MG TABLET PO (21:37)
[2022-12-03 08:03] VITALS: BP 109/67; PULSE 108; RESP 16; TEMP 37.1; O2SAT 97
[2022-12-03] MEDS: Cholecalciferol (Vitamin D3) 10 MCG TABLET PO (08:24)
[2022-12-03] MEDS: risperiDONE 2 MG TABLET PO ×2 (08:24→20:17)
[2022-12-03] MEDS: Sertraline HCL 50 MG TABLET PO ×2 (08:24→20:17)
[2022-12-03] MEDS: LORazepam 1 MG TABLET PO (08:26)
--- NOTE | 2022-12-03 08:32 | HO.PSYCHPN ---
Subjective Subjective Date of Service: 12/02/22 Reason For Visit: Paranoid Schizophrenia Subjective Notes: Conditional Voluntary Healthcare Proxy: No Guardianship: No Medical Problems Affecting Mental Status: No Interim History: Patient was seen and discussed in rounds today. Records and plans were reviewed. He continues to be mostly on his own, in his room and in bed. He does come out some and interacts minimally with brief answers to questions. He politely refused all medications. He was being encouraged to take some p.r.n. Ativan which might help with his anxiety isolation. We did talk about that and he may consider taking it today. No SI. No changes were made today Review of Systems Review of Systems Yes all other systems are reviewed and are negative Mental Status Exam Mental Status Exam Narrative: In today's visit he was in bed. He is alert, pleasant and minimally interactive. Moderate eye contact. Affect is good constricted and flat. He appears to be responding to internal stimuli. He does have some thought blocking. No active SI. Cognitively he has paucity of thought and blocking. Judgment is marginal Diagnostics Vital Signs (24Hr): Vital Signs - 24 hr 12/02/22 08:56 12/02/22 21:30 12/03/22 08:03 Temperature 98.9 F 98.4 F 98.8 F Pulse Rate 98 69 108 H Respiratory Rate 16 16 Blood Pressure 117/68 110/63 109/67 Pulse Oximetry 98 97 Oxygen Delivery Method Room Air Room Air Medications Medications Current Medications Acetaminophen (Acetaminophen 325 Mg Tablet) 650 mg PO Q6H PRN PRN Reason: Headache/Pain Mild Scale (1-3) Al Hydroxide/Mg Hydroxide (Magnesium Hydrox/Alum Hydrox 30 Ml Oral.Susp) 30 ml PO Q6H PRN PRN Reason: Heartburn/Nausea Benztropine Mesylate (Benztropine Mesylate 1 Mg Tablet) 1 mg PO BID PRN PRN Reason: Extrapyramidal Effects Hydroxyzine HCl (Hydroxyzine Hcl 25 Mg Tablet) 25 mg PO Q6H PRN PRN Reason: Anxiety Ibuprofen (Ibuprofen 400 Mg Tablet) 400 mg PO Q6H PRN PRN Reason: Pain, Mild (Pain Scale 1-3) Lorazepam (Lorazepam 1 Mg Tablet) 1 mg PO Q6H PRN PRN Reason: Anxiety Last Admin: 12/03/22 08:26 Dose: 1 mg Magnesium Hydroxide (Milk Of Magnesia 30 Ml Oral.Susp) 30 ml PO DAILY PRN PRN Reason: Constipation Mirtazapine (Mirtazapine 15 Mg Tablet) 15 mg PO BEDTIME [facility] Last Admin: 12/02/22 21:36 Dose: 15 mg Risperidone (Risperidone 1 Mg Tablet) 1 mg PO BID PRN PRN Reason: psychosis Risperidone (Risperidone 2 Mg Tablet) 2 mg PO BID [facility] Last Admin: 12/03/22 08:24 Dose: 2 mg Sertraline HCl (Sertraline Hcl 50 Mg Tablet) 50 mg PO BID [facility] Last Admin: 12/03/22 08:24 Dose: 50 mg Trazodone HCl (Trazodone Hcl 50 Mg Tablet) 50 mg PO BEDTIME MRX1 PRN PRN Reason: Insomnia Last Admin: 11/29/22 20:36 Dose: 50 mg Vitamin D (Cholecalciferol (Vitamin D3) 10 Mcg Tablet) 10 mcg PO DAILY [facility] Last Admin: 12/03/22 08:24 Dose: 10 mcg Allergies Allergies Allergy/AdvReac Type Severity Reaction Status Date / Time Pork/Porcine Containing Allergy Unknown Verified 11/29/22 00:56 Products Assessment & Plan Assessment & Plan (1) Schizoaffective disorder: Status: Acute Code(s): F25.9 - Schizoaffective disorder, unspecified Plan 22 yo male, hx schizoaffective disorder, currently depressed, transferred from [facility]. Reports an increase in auditory perceptual alterations. Pt and family believe he may need a changes in medications to improve symptom management. Care discussed with pt's mother. Message left for Dr. Brown to discuss as well. Pt struggling with active sx this a.m. and distress Plan: Risperdal 2 mg now Lorazepam 1 mg now Mirtazapine 15 mg hs Increase Risperdal to 2 mg bid B12, Folate, Vit D, Lipids, A1C, EKG 11/30/22: Vitamin D supplementation as level today is 5 12/01/22: Continue current regime and plan of care. 12/02: Continue current regimen and plans 12/03: Continue current regimen and plans. Encouraged to take p.r.n. Ativan Reason for contiued inpatient stay Substantial Risk for: med/psych decompensation Time Spent With Patient Time: Total time managing care of this patient today ____ minutes.
[2022-12-03 19:30] VITALS: BP 120/69; PULSE 108; TEMP 36.7; O2SAT 97
[2022-12-03] MEDS: Mirtazapine 15 MG TABLET PO (20:17)
[2022-12-04] MEDS: risperiDONE 2 MG TABLET PO ×2 (08:42→21:01)
[2022-12-04] MEDS: Sertraline HCL 50 MG TABLET PO ×2 (08:42→21:01)
[2022-12-04] MEDS: Cholecalciferol (Vitamin D3) 10 MCG TABLET PO (08:42)
--- NOTE | 2022-12-04 09:21 | HO.PSYCHPN ---
Subjective Subjective Date of Service: 12/04/22 Reason For Visit: Paranoid Schizophrenia Subjective Notes: Conditional Voluntary Healthcare Proxy: No Guardianship: No Medical Problems Affecting Mental Status: No Interim History: Patient was seen and discussed in rounds today. Records and plans were reviewed. He continues to be mostly on his own, in his room and in bed. He did finally take a dose of Ativan yesterday and this morning actually so seems a little more animated and talks in longer sentences. He also has some eye contact. Denies auditory visual hallucinations but appears to be responding to internal stimuli and self dialogue is observed. Sleeping adequately. No complaints or side effects. No changes were made today Review of Systems Review of Systems Yes all other systems are reviewed and are negative Diagnostics Vital Signs (24Hr): Vital Signs - 24 hr 12/03/22 19:30 Temperature 98.0 F Pulse Rate 108 H Blood Pressure 120/69 Pulse Oximetry 97 Oxygen Delivery Method Room Air Medications Medications Current Medications Acetaminophen (Acetaminophen 325 Mg Tablet) 650 mg PO Q6H PRN PRN Reason: Headache/Pain Mild Scale (1-3) Al Hydroxide/Mg Hydroxide (Magnesium Hydrox/Alum Hydrox 30 Ml Oral.Susp) 30 ml PO Q6H PRN PRN Reason: Heartburn/Nausea Benztropine Mesylate (Benztropine Mesylate 1 Mg Tablet) 1 mg PO BID PRN PRN Reason: Extrapyramidal Effects Hydroxyzine HCl (Hydroxyzine Hcl 25 Mg Tablet) 25 mg PO Q6H PRN PRN Reason: Anxiety Ibuprofen (Ibuprofen 400 Mg Tablet) 400 mg PO Q6H PRN PRN Reason: Pain, Mild (Pain Scale 1-3) Lorazepam (Lorazepam 1 Mg Tablet) 1 mg PO Q6H PRN PRN Reason: Anxiety Last Admin: 12/03/22 08:26 Dose: 1 mg Magnesium Hydroxide (Milk Of Magnesia 30 Ml Oral.Susp) 30 ml PO DAILY PRN PRN Reason: Constipation Mirtazapine (Mirtazapine 15 Mg Tablet) 15 mg PO BEDTIME [facility] Last Admin: 12/03/22 20:17 Dose: 15 mg Risperidone (Risperidone 1 Mg Tablet) 1 mg PO BID PRN PRN Reason: psychosis Risperidone (Risperidone 2 Mg Tablet) 2 mg PO BID [facility] Last Admin: 12/04/22 08:42 Dose: 2 mg Sertraline HCl (Sertraline Hcl 50 Mg Tablet) 50 mg PO BID [facility] Last Admin: 12/04/22 08:42 Dose: 50 mg Trazodone HCl (Trazodone Hcl 50 Mg Tablet) 50 mg PO BEDTIME MRX1 PRN PRN Reason: Insomnia Last Admin: 11/29/22 20:36 Dose: 50 mg Vitamin D (Cholecalciferol (Vitamin D3) 10 Mcg Tablet) 10 mcg PO DAILY [facility] Last Admin: 12/04/22 08:42 Dose: 10 mcg Allergies Allergies Allergy/AdvReac Type Severity Reaction Status Date / Time Pork/Porcine Containing Allergy Unknown Verified 11/29/22 00:56 Products Assessment & Plan Assessment & Plan (1) Schizoaffective disorder: Status: Acute Code(s): F25.9 - Schizoaffective disorder, unspecified Plan 22 yo male, hx schizoaffective disorder, currently depressed, transferred from [facility]. Reports an increase in auditory perceptual alterations. Pt and family believe he may need a changes in medications to improve symptom management. Care discussed with pt's mother. Message left for Dr. Brown to discuss as well. Pt struggling with active sx this a.m. and distress Plan: Risperdal 2 mg now Lorazepam 1 mg now Mirtazapine 15 mg hs Increase Risperdal to 2 mg bid B12, Folate, Vit D, Lipids, A1C, EKG 11/30/22: Vitamin D supplementation as level today is 5 12/01/22: Continue current regime and plan of care. 12/02: Continue current regimen and plans 12/03: Continue current regimen and plans. Encouraged to take p.r.n. Ativan 12/04: Continue current plans and regimen Reason for contiued inpatient stay Substantial Risk for: rapid decompensation and med/psych decompensation Time Spent With Patient Time: Total time managing care of this patient today ____ minutes.
[2022-12-04 09:40] VITALS: BP 116/69; PULSE 116; RESP 16; TEMP 36.8; O2SAT 98
--- NOTE | 2022-12-04 14:38 | PC.NURSE ---
Pt?s aunt, Allie Amado, called to speak with Hatim?s nurse and request a status on his condition. Pt gave permission to speak with his aunt, and consent is in chart. His aunt reported Hatjose alberto?s father and grandfather had schizophrenia; Mike was at one point hiding his medication and ?relapsed? (clarified with her she meant decompensated) and the voices were getting louder. She said approximately 8 months ago, Mike was communicating very little with his family and was brought to the ED. He stated to her at that time, ?Last night, I thought I had a seizure. I was awake but could not move. I don?t feel right.? She stated his eyes were blinking and fingers ?flickering? and he rapped his whole life for 2 hours non-stop, which was unusual due to his usually being withdrawn and non talkative; he had stopped speaking unless asked questions. His aunt stated she welcomes a call anytime if she can help and gave her phone number: [phone].
[2022-12-04 18:00] VITALS: BP 117/72; PULSE 114; RESP 18; TEMP 36; O2SAT 98
[2022-12-04] MEDS: LORazepam 1 MG TABLET PO (21:01)
[2022-12-04] MEDS: hydrOXYzine HCL 25 MG TABLET PO (21:01)
[2022-12-04] MEDS: Mirtazapine 15 MG TABLET PO (21:01)
[2022-12-05] MEDS: Cholecalciferol (Vitamin D3) 10 MCG TABLET PO (08:22)
[2022-12-05] MEDS: Sertraline HCL 50 MG TABLET PO (08:22)
[2022-12-05] MEDS: risperiDONE 2 MG TABLET PO ×2 (08:22→21:18)
[2022-12-05 08:50] VITALS: BP 123/69; PULSE 97; RESP 16; TEMP 36.6; O2SAT 98
--- NOTE | 2022-12-05 10:49 | HO.PSYCHPN ---
Subjective Subjective Date of Service: 12/05/22 Reason For Visit: Paranoid Schizophrenia Subjective Notes: Conditional Voluntary Interim History: Review with team. Pt remains isolative in his room, in bed. He refuses milieu activity. Call from motherRose Marie [phone]. Mother and aunt saw pt over the weekend and they see improvement but acknowledge the isolation pt experiences. Mother reports sx have seemed to increase since graduation from school and with drastic change in 2019 where pt became significantly isolated at home. The family sees a change with Risperdal increase-pt can now look at his mom and is more interactive but tells family he is bored. They are wondering what to do when he comes home for an out pt plan. They do see pt as being more depressed. Discussed family's findings with pt. He is willing to increase his antidepressant to attempt improved sx mgt. He reports no interest in milieu groups and would just like his phone or IPad as this is what he does at home. Medication Compliance: Yes Side effects from medications: No Attending Groups: No Review of Systems Acute medical concerns: No Medical Review of Systems: unchanged Mental Status Exam Mental Status Exam Patient Appearance: Appropriate Patient Orientation: Person, Place, Time and Situation Level of Consciousness: Alert Patient Behavior: Guarded, Talkative and Good Eye Contact Mood Description: Constricted and Depressed Affect Description: Constricted Patient Cognition Impaired: No Ability to Follow Directions: Good Speech Pattern: Spontaneous Speech Memory Description: Intact Hallucinations: None (denies) Delusions: Paranoid Ideation Thought Process: Distracted and Rumination Thought Content: positive for [place], positive for Circumstantial, positive for Suicidal Ideation (denies) and positive for Homicidal Ideation (denies) Depressive Symptoms: Sleeping More Than Usual and Loss of Energy Judgement: Fair Diagnostics Vital Signs (24Hr): Vital Signs - 24 hr 12/04/22 18:00 12/05/22 08:50 Temperature 96.8 F 97.8 F Pulse Rate 114 H 97 Respiratory Rate 18 16 Blood Pressure 117/72 123/69 Pulse Oximetry 98 98 Oxygen Delivery Method Room Air Room Air Medications Medications Current Medications Acetaminophen (Acetaminophen 325 Mg Tablet) 650 mg PO Q6H PRN PRN Reason: Headache/Pain Mild Scale (1-3) Al Hydroxide/Mg Hydroxide (Magnesium Hydrox/Alum Hydrox 30 Ml Oral.Susp) 30 ml PO Q6H PRN PRN Reason: Heartburn/Nausea Benztropine Mesylate (Benztropine Mesylate 1 Mg Tablet) 1 mg PO BID PRN PRN Reason: Extrapyramidal Effects Hydroxyzine HCl (Hydroxyzine Hcl 25 Mg Tablet) 25 mg PO Q6H PRN PRN Reason: Anxiety Last Admin: 12/04/22 21:01 Dose: 25 mg Ibuprofen (Ibuprofen 400 Mg Tablet) 400 mg PO Q6H PRN PRN Reason: Pain, Mild (Pain Scale 1-3) Lorazepam (Lorazepam 1 Mg Tablet) 1 mg PO Q6H PRN PRN Reason: Anxiety Last Admin: 12/04/22 21:01 Dose: 1 mg Magnesium Hydroxide (Milk Of Magnesia 30 Ml Oral.Susp) 30 ml PO DAILY PRN PRN Reason: Constipation Mirtazapine (Mirtazapine 15 Mg Tablet) 15 mg PO BEDTIME [facility] Last Admin: 12/04/22 21:01 Dose: 15 mg Risperidone (Risperidone 1 Mg Tablet) 1 mg PO BID PRN PRN Reason: psychosis Risperidone (Risperidone 2 Mg Tablet) 2 mg PO BID [facility] Last Admin: 12/05/22 08:22 Dose: 2 mg Sertraline HCl (Sertraline Hcl 50 Mg Tablet) 50 mg PO BID [facility] Last Admin: 12/05/22 08:22 Dose: 50 mg Trazodone HCl (Trazodone Hcl 50 Mg Tablet) 50 mg PO BEDTIME MRX1 PRN PRN Reason: Insomnia Last Admin: 11/29/22 20:36 Dose: 50 mg Vitamin D (Cholecalciferol (Vitamin D3) 10 Mcg Tablet) 10 mcg PO DAILY [facility] Last Admin: 12/05/22 08:22 Dose: 10 mcg Allergies Allergies Allergy/AdvReac Type Severity Reaction Status Date / Time Pork/Porcine Containing Allergy Unknown Verified 11/29/22 00:56 Products Assessment & Plan Assessment & Plan (1) Schizoaffective disorder: Status: Acute Code(s): F25.9 - Schizoaffective disorder, unspecified Plan 22 yo male, hx schizoaffective disorder, currently depressed, transferred from [facility]. Reports an increase in auditory perceptual alterations. Pt and family believe he may need a changes in medications to improve symptom management. Care discussed with pt's mother. Message left for Dr. Brown to discuss as well. Pt struggling with active sx this a.m. and distress Plan: Risperdal 2 mg now Lorazepam 1 mg now Mirtazapine 15 mg hs Increase Risperdal to 2 mg bid B12, Folate, Vit D, Lipids, A1C, EKG 11/30/22: Vitamin D supplementation as level today is 5 12/01/22: Continue current regime and plan of care. 12/02: Continue current regimen and plans 12/03: Continue current regimen and plans. Encouraged to take p.r.n. Ativan 12/04: Continue current plans and regimen 12/05/22: Increase Sertraline to 75 mg bid Patient educated on: medication risk/benefits and therapeutic strategies Informed Consent: understands Reason for contiued inpatient stay Substantial Risk for: rapid decompensation Time Spent With Patient Time: Total time managing care of this patient today ____ minutes.
--- NOTE | 2022-12-05 17:54 | P.CONHOSP_ITS ---
History of Present Illness Data of Consult Service Date: 12/05/22 Requesting physician: Sisi Mendoza Primary Care Provider: Unknown Physician HPI Reason for consult: medical H&P 22-year-old male with history of schizoaffective disorder admitted to Psychiatry with consult placed to hospitalist service for medical H and P. The patient denies any significant medical history. He has no complaints at this time. Denies any alcohol use, illicit drug use, or cigarette smoking. Review of Systems Review of Systems: General: No fevers, malaise, unintentional weight loss HEENT: No blurred vision, diplopia. No sore throat, nasal congestion, rhinorrhea, sinus pain, ear pain Cardiovascular: No chest pain, palpitations, or leg edema Respiratory: No shortness of breath, wheezing, cough GI: No abdominal pain, nausea, vomiting, diarrhea, constipation, melena, hematochezia : No dysuria, hematuria, increased urinary frequency, decreased urinary output MSK: No myalgia, back pain Neuro: No headaches, weakness, paresthesias Skin: No rashes or lesions PMFSH Medical History Schizoaffective disorder Social History Household Members: Family Household Members Other:: GRANDMOTHER, WOULD LIKE TO LIVE BACK WITH MOM AFTER STABILIZED Housing: Unknown / Unable to assess Do you presently have visiting nurse or other home services: No Patient Tobacco Use Status: Never used Tobacco Smoked in Last 30 Days: No e-Cigarette/Vaping Use: Never Used Patient Interested in Nicotine Replacement: No Patient Given Instructions on How to Stop Smoking: No Second Hand Smoke Exposure: No Use of substances other than those prescribed or required for medical reasons: No Currently Displaying Signs/Symptoms of Drug Intoxication Withdrawal: No Have you been hit, kicked, punched, or otherwise hurt by someone within the past year? If so, by whom?: No Do you feel safe in your current relationship?: No Current Relationship Is there a partner from a previous relationship who is making you feel unsafe now?: No Are you made to feel afraid or neglected: No Advance Directives: No Do you have thoughts of harming others: None Do you have a plan to hurt others: No Plan Recently lost weight without trying: No Nutrition Risks: No Nutritional Risk Poor oral hygiene: No service: No Sexual orientation: Don't Know Meds Allergies Allergy/AdvReac Type Severity Reaction Status Date / Time Pork/Porcine Containing Allergy Unknown Verified 11/29/22 00:56 Products Active Medications: Current Medications Acetaminophen (Acetaminophen 325 Mg Tablet) 650 mg PO Q6H PRN PRN Reason: Headache/Pain Mild Scale (1-3) Al Hydroxide/Mg Hydroxide (Magnesium Hydrox/Alum Hydrox 30 Ml Oral.Susp) 30 ml PO Q6H PRN PRN Reason: Heartburn/Nausea Benztropine Mesylate (Benztropine Mesylate 1 Mg Tablet) 1 mg PO BID PRN PRN Reason: Extrapyramidal Effects Hydroxyzine HCl (Hydroxyzine Hcl 25 Mg Tablet) 25 mg PO Q6H PRN PRN Reason: Anxiety Last Admin: 12/04/22 21:01 Dose: 25 mg Ibuprofen (Ibuprofen 400 Mg Tablet) 400 mg PO Q6H PRN PRN Reason: Pain, Mild (Pain Scale 1-3) Lorazepam (Lorazepam 1 Mg Tablet) 1 mg PO Q6H PRN PRN Reason: Anxiety Last Admin: 12/04/22 21:01 Dose: 1 mg Magnesium Hydroxide (Milk Of Magnesia 30 Ml Oral.Susp) 30 ml PO DAILY PRN PRN Reason: Constipation Mirtazapine (Mirtazapine 15 Mg Tablet) 15 mg PO BEDTIME [facility] Last Admin: 12/04/22 21:01 Dose: 15 mg Risperidone (Risperidone 1 Mg Tablet) 1 mg PO BID PRN PRN Reason: psychosis Risperidone (Risperidone 2 Mg Tablet) 2 mg PO BID [facility] Last Admin: 12/05/22 08:22 Dose: 2 mg Sertraline HCl (Sertraline Hcl 50 Mg Tablet) 50 mg PO BID [facility] Last Admin: 12/05/22 08:22 Dose: 50 mg Trazodone HCl (Trazodone Hcl 50 Mg Tablet) 50 mg PO BEDTIME MRX1 PRN PRN Reason: Insomnia Last Admin: 11/29/22 20:36 Dose: 50 mg Vitamin D (Cholecalciferol (Vitamin D3) 10 Mcg Tablet) 10 mcg PO DAILY [facility] Last Admin: 12/05/22 08:22 Dose: 10 mcg Home Medications Medication Instructions Recorded Confirmed Last Taken Type acetaminophen 650 mg tablet 650 mg PO Q6H PRN Pain 11/29/22 11/29/22 Unknown History benztropine 0.5 mg tablet 1 mg PO 11/29/22 11/28/22 History hydroxyzine HCl 50 mg tablet 50 mg PO Q6H PRN Anxiety 11/29/22 11/29/22 Unknown History ibuprofen 400 mg tablet 400 mg PO Q8H PRN Pain 11/29/22 11/29/22 Unknown History lorazepam 1 mg tablet 1 mg PO Q8H PRN Anxiety 11/29/22 11/29/22 Unknown History melatonin 10 mg tablet 9 mg PO DAILY 11/29/22 11/29/22 Unknown History risperidone 1 mg tablet (Risperdal) 1 mg PO BID 11/29/22 11/29/22 11/28/22 History risperidone 1 mg tablet (Risperdal) 1 mg PO BID PRN Agitation 11/29/22 11/29/22 Unknown History sertraline 50 mg tablet 50 mg PO BID 11/29/22 11/29/22 11/28/22 History trazodone 50 mg tablet 25 mg PO DAILY PRN Insomnia 11/29/22 11/29/22 Unknown History Physical Exam Vital Signs and Narrative: Vital Signs: Last Vital Signs Temp 97.8 F 12/05/22 08:50 Pulse 97 12/05/22 08:50 Resp 16 12/05/22 08:50 BP 123/69 12/05/22 08:50 Pulse Ox 98 12/05/22 08:50 O2 Del Method 12/05/22 08:50 Constitutional - Awake and Alert, No apparent distress Eyes - PERRLA, EOMI Cardiovascular - S1S2, RRR, No edema Respiratory - Normal lung expansion, Normal respiratory effort, No respiratory distress, CTA bilaterally Gastrointestinal - NT / ND; +BS; No rebound or guarding - No CVA tenderness Extremities - no calf tenderness bilaterally, no swelling Musculoskeletal - Normal inspection, normal ROM Skin - Warm/Dry Neurological - Alert & oriented x3, CN II-XII in tact, 5/5 strength BUE and BLE Psychological - Appropriate affect Assessment and Plan (1) Routine medical exam: Status: Acute Plan 22-year-old male with history of schizoaffective disorder admitted to Psychiatry with consult placed to hospitalist service for medical H and P. # schizoaffective disorder -plan per Psychiatry Patient denies any other medical history and upon review of home medications, does not appear to have any significant medical history. Labs reviewed which are within normal limits. Patient has no complaints at this time. Plan per Psychiatry. Thank you for allowing me to participate in this consult. Signing off at this time. Please do not hesitate to call for further questions. Time Spent With Patient Time: Total time managing care of this patient today ____ minutes.
[2022-12-05 18:14] VITALS: BP 130/70; PULSE 107
[2022-12-05] MEDS: Mirtazapine 15 MG TABLET PO (21:18)
[2022-12-05] MEDS: LORazepam 1 MG TABLET PO (21:18)
[2022-12-05] MEDS: hydrOXYzine HCL 25 MG TABLET PO (21:18)
[2022-12-05] MEDS: Sertraline HCL 25 MG TABLET 75 MG PO (21:18)
[2022-12-06 08:55] VITALS: BP 113/67; PULSE 99; RESP 16; TEMP 36.2; O2SAT 99
[2022-12-06] MEDS: Sertraline HCL 25 MG TABLET 75 MG PO ×2 (08:58→22:56)
[2022-12-06] MEDS: risperiDONE 2 MG TABLET PO ×2 (08:58→22:58)
[2022-12-06] MEDS: Cholecalciferol (Vitamin D3) 10 MCG TABLET PO (08:58)
[2022-12-06] MEDS: LORazepam 1 MG TABLET PO (08:58)
--- NOTE | 2022-12-06 15:18 | P.PNPSI_ITS ---
Subjective Subjective Date of Service: 12/06/22 Reason For Visit: Paranoid Schizophrenia Subjective Notes: Conditional Voluntary Interim History: Tolerating Sertraline increase. Family would like to have a meeting on Sunday 12pm to discuss out patient resources Pt in agreement Continues with isolation, declines milieu group therapy Medication Compliance: Yes Side effects from medications: No Attending Groups: No Review of Systems Acute medical concerns: No Mental Status Exam Mental Status Exam Patient Appearance: Appropriate Patient Orientation: Person, Place, Time and Situation Level of Consciousness: Alert Patient Behavior: Guarded, Talkative and Good Eye Contact Mood Description: Constricted and Depressed Affect Description: Constricted Patient Cognition Impaired: No Ability to Follow Directions: Good Speech Pattern: Spontaneous Speech Memory Description: Intact Hallucinations: None (denies) Delusions: Paranoid Ideation Thought Process: Distracted and Rumination Thought Content: positive for [place], positive for Circumstantial, positive for Suicidal Ideation (denies) and positive for Homicidal Ideation (denies) Depressive Symptoms: Sleeping More Than Usual and Loss of Energy Judgement: Fair Diagnostics Vital Signs (24Hr): Vital Signs - 24 hr 12/05/22 18:14 12/06/22 08:55 Temperature 97.1 F Pulse Rate 107 H 99 Respiratory Rate 16 Blood Pressure 130/70 113/67 Pulse Oximetry 99 Oxygen Delivery Method Room Air Medications Medications Current Medications Acetaminophen (Acetaminophen 325 Mg Tablet) 650 mg PO Q6H PRN PRN Reason: Headache/Pain Mild Scale (1-3) Al Hydroxide/Mg Hydroxide (Magnesium Hydrox/Alum Hydrox 30 Ml Oral.Susp) 30 ml PO Q6H PRN PRN Reason: Heartburn/Nausea Benztropine Mesylate (Benztropine Mesylate 1 Mg Tablet) 1 mg PO BID PRN PRN Reason: Extrapyramidal Effects Hydroxyzine HCl (Hydroxyzine Hcl 25 Mg Tablet) 25 mg PO Q6H PRN PRN Reason: Anxiety Last Admin: 12/05/22 21:18 Dose: 25 mg Ibuprofen (Ibuprofen 400 Mg Tablet) 400 mg PO Q6H PRN PRN Reason: Pain, Mild (Pain Scale 1-3) Lorazepam (Lorazepam 1 Mg Tablet) 1 mg PO Q6H PRN PRN Reason: Anxiety Last Admin: 12/06/22 08:58 Dose: 1 mg Magnesium Hydroxide (Milk Of Magnesia 30 Ml Oral.Susp) 30 ml PO DAILY PRN PRN Reason: Constipation Mirtazapine (Mirtazapine 15 Mg Tablet) 15 mg PO BEDTIME [facility] Last Admin: 12/05/22 21:18 Dose: 15 mg Risperidone (Risperidone 1 Mg Tablet) 1 mg PO BID PRN PRN Reason: psychosis Risperidone (Risperidone 2 Mg Tablet) 2 mg PO BID [facility] Last Admin: 12/06/22 08:58 Dose: 2 mg Sertraline HCl (Sertraline Hcl 25 Mg Tablet) 75 mg PO BID [facility] Last Admin: 12/06/22 08:58 Dose: 75 mg Trazodone HCl (Trazodone Hcl 50 Mg Tablet) 50 mg PO BEDTIME MRX1 PRN PRN Reason: Insomnia Last Admin: 11/29/22 20:36 Dose: 50 mg Vitamin D (Cholecalciferol (Vitamin D3) 10 Mcg Tablet) 10 mcg PO DAILY [facility] Last Admin: 12/06/22 08:58 Dose: 10 mcg Allergies Allergies Allergy/AdvReac Type Severity Reaction Status Date / Time Pork/Porcine Containing Allergy Unknown Verified 11/29/22 00:56 Products Assessment & Plan Assessment & Plan (1) Routine medical exam: Status: Acute Code(s): Z00.00 - Encounter for general adult medical examination without abnormal findings Plan 12/06/22: Tolerating Sertraline. Contiue current plan. Family meeting 12/08/22. Patient educated on: therapeutic strategies Informed Consent: understands Reason for contiued inpatient stay Substantial Risk for: rapid decompensation Time Spent With Patient Time: Total time managing care of this patient today ____ minutes.
[2022-12-06 19:50] VITALS: BP 119/76; PULSE 102; TEMP 36.2; O2SAT 97
[2022-12-06] MEDS: Mirtazapine 15 MG TABLET PO (22:56)
[2022-12-07 09:04] VITALS: BP 125/77; PULSE 101; RESP 16; TEMP 36.7; O2SAT 98
[2022-12-07] MEDS: Sertraline HCL 25 MG TABLET 75 MG PO ×2 (09:08→20:07)
[2022-12-07] MEDS: risperiDONE 2 MG TABLET PO ×2 (09:08→20:07)
[2022-12-07] MEDS: Cholecalciferol (Vitamin D3) 10 MCG TABLET PO (09:08)
--- NOTE | 2022-12-07 17:06 | HO.PSYCHPN ---
Subjective Subjective Date of Service: 12/07/22 Reason For Visit: Paranoid Schizophrenia Subjective Notes: Conditional Voluntary Healthcare Proxy: No Guardianship: No Medical Problems Affecting Mental Status: No Interim History: Family meeting 12/08/22 Pt remains isolative and in his room Refuses [facility] referral Asking about discharge Medication Compliance: Yes Side effects from medications: No Attending Groups: No Review of Systems Acute medical concerns: No Medical Review of Systems: unchanged Mental Status Exam Mental Status Exam Patient Appearance: Appropriate Patient Orientation: Person, Place, Time and Situation Level of Consciousness: Alert Patient Behavior: Guarded, Talkative and Good Eye Contact Mood Description: Constricted and Depressed Affect Description: Constricted Patient Cognition Impaired: No Ability to Follow Directions: Good Speech Pattern: Spontaneous Speech Memory Description: Intact Hallucinations: None (denies) Delusions: Paranoid Ideation Thought Process: Distracted and Rumination Thought Content: positive for [place], positive for Circumstantial, positive for Suicidal Ideation (denies) and positive for Homicidal Ideation (denies) Depressive Symptoms: Sleeping More Than Usual and Loss of Energy Judgement: Fair Diagnostics Vital Signs (24Hr): Vital Signs - 24 hr 12/06/22 19:50 12/07/22 09:04 Temperature 97.2 F 98.1 F Pulse Rate 102 H 101 H Respiratory Rate 16 Blood Pressure 119/76 125/77 Pulse Oximetry 97 98 Oxygen Delivery Method Room Air Room Air Medications Medications Current Medications Acetaminophen (Acetaminophen 325 Mg Tablet) 650 mg PO Q6H PRN PRN Reason: Headache/Pain Mild Scale (1-3) Al Hydroxide/Mg Hydroxide (Magnesium Hydrox/Alum Hydrox 30 Ml Oral.Susp) 30 ml PO Q6H PRN PRN Reason: Heartburn/Nausea Benztropine Mesylate (Benztropine Mesylate 1 Mg Tablet) 1 mg PO BID PRN PRN Reason: Extrapyramidal Effects Hydroxyzine HCl (Hydroxyzine Hcl 25 Mg Tablet) 25 mg PO Q6H PRN PRN Reason: Anxiety Last Admin: 12/05/22 21:18 Dose: 25 mg Ibuprofen (Ibuprofen 400 Mg Tablet) 400 mg PO Q6H PRN PRN Reason: Pain, Mild (Pain Scale 1-3) Lorazepam (Lorazepam 1 Mg Tablet) 1 mg PO Q6H PRN PRN Reason: Anxiety Last Admin: 12/06/22 08:58 Dose: 1 mg Magnesium Hydroxide (Milk Of Magnesia 30 Ml Oral.Susp) 30 ml PO DAILY PRN PRN Reason: Constipation Mirtazapine (Mirtazapine 15 Mg Tablet) 15 mg PO BEDTIME [facility] Last Admin: 12/06/22 22:56 Dose: 15 mg Risperidone (Risperidone 1 Mg Tablet) 1 mg PO BID PRN PRN Reason: psychosis Risperidone (Risperidone 2 Mg Tablet) 2 mg PO BID [facility] Last Admin: 12/07/22 09:08 Dose: 2 mg Sertraline HCl (Sertraline Hcl 25 Mg Tablet) 75 mg PO BID [facility] Last Admin: 12/07/22 09:08 Dose: 75 mg Trazodone HCl (Trazodone Hcl 50 Mg Tablet) 50 mg PO BEDTIME MRX1 PRN PRN Reason: Insomnia Last Admin: 11/29/22 20:36 Dose: 50 mg Vitamin D (Cholecalciferol (Vitamin D3) 10 Mcg Tablet) 10 mcg PO DAILY [facility] Last Admin: 12/07/22 09:08 Dose: 10 mcg Allergies Allergies Allergy/AdvReac Type Severity Reaction Status Date / Time Pork/Porcine Containing Allergy Unknown Verified 11/29/22 00:56 Products Assessment & Plan Assessment & Plan (1) Routine medical exam: Status: Acute Code(s): Z00.00 - Encounter for general adult medical examination without abnormal findings Plan 12/06/22: Tolerating Sertraline. Contniue current plan. Family meeting 12/08/22. 12/07/22: Continue current plan Informed Consent: understands and further education needed Reason for contiued inpatient stay Substantial Risk for: rapid decompensation Time Spent With Patient Time: Total time managing care of this patient today ____ minutes.
[2022-12-07 19:16] VITALS: BP 132/77; PULSE 93; TEMP 36.6
[2022-12-07] MEDS: Mirtazapine 15 MG TABLET PO (20:07)
[2022-12-08 06:00] VITALS: BP 129/79; PULSE 88; RESP 14; TEMP 36.3; O2SAT 99
[2022-12-08] MEDS: Sertraline HCL 25 MG TABLET 75 MG PO ×2 (08:17→22:05)
[2022-12-08] MEDS: risperiDONE 2 MG TABLET PO ×2 (08:17→22:05)
[2022-12-08] MEDS: Cholecalciferol (Vitamin D3) 10 MCG TABLET PO (08:18)
[2022-12-08 09:03] LABS: MANUAL DIFF FLAG NO
[2022-12-08 09:06] LABS: Basophils Percent Auto 0.3 % (0-2); Eosinophils Absolute Auto 0.1 X10*3/uL (0.0-0.4); Hematocrit 44.7 % (42.0-52.0); Hemoglobin 14.5 g/dl (14.0-18.0); Imm Gran Abs Auto 0.09 X10*3/uL (0.00-0.03); Imm Gran Pct Auto 1.5 % (0.0-0.4); Lymphocytes Absolute Auto 1.4 X10*3/uL (1.2-4.9); Lymphocytes Percent Auto 23.3 % (20-40); Mean Corpuscular HGB Conc 32.4 g/dl (31.0-36.0); Mean Corpuscular Hemoglobin 25.4 pg (27.0-33.0); Mean Corpuscular Volume 78.3 fL (80.0-98.0); Mean Platelet Volume 9.8 fL (9.4-12.4); Monocytes Absolute Auto 0.4 X10*3/uL (0.1-1.2); Monocytes Percent Auto 6.3 % (2-11); Neutrophils Absolute Auto 4.1 x10*3/uL (2.0-8.3); Neutrophils Percent Auto 67.6 % (45-73); Platelet Count 253 X10*3/uL (160-400); Red Blood Count 5.71 X10*6/uL (4.60-5.80); Red Cell Distribution Width 14.9 % (11.0-16.0)
[2022-12-08 09:21] LABS: Alanine Aminotransferase 45 U/L (0-40); Albumin Level 4.2 g/dL (3.5-5.0); Alkaline Phosphatase 72 U/L (39-117); Anion Gap 13 (12-20); Aspartate Amino Transferase 24 U/L (5-37); Bilirubin Total 0.3 mg/dL (0.0-1.0); Blood Urea Nitrogen 8 mg/dL (9-16); Calcium 9.6 mg/dL (8.4-10.2); Carbon Dioxide 26 mmol/L (22-29); Chloride 107 mmol/L (96-108); Estimated Glomerular Filt Rate > 60; Glucose Fasting 116 mg/dL (60-99); Potassium 4.3 mmol/L (3.3-5.1); Sodium 142 mmol/L (135-145)
--- NOTE | 2022-12-08 17:21 | HO.PSYCHPN ---
Subjective Subjective Date of Service: 12/08/22 Reason For Visit: Paranoid Schizophrenia Subjective Notes: Conditional Voluntary Healthcare Proxy: No Guardianship: No Medical Problems Affecting Mental Status: No Interim History: Family meeting with mother and aunt, pt and Joe PRATT. Discussed improvements with medicines, however pt remains isolative, not participating in milieu. Family does not want medication changes at this time- they believe pt is improved. Discharge discussed for early next week. They describe pt as a quiet person. He has always been mild and a stand off type of child. He will be given a routine at home. He expressed interest in having a literacy program to improve reading skills, to work , return to driving and to attend [employer]. Pt is from a large family and they report he has several cousins who are able to share activity with him. Pt believes sx are improved, he denies SE and is feeling ready to leave. Medication Compliance: Yes Side effects from medications: No Attending Groups: No Review of Systems Acute medical concerns: No Mental Status Exam Mental Status Exam Patient Appearance: Appropriate Patient Orientation: Person, Place, Time and Situation Level of Consciousness: Alert Patient Behavior: Guarded, Talkative and Good Eye Contact Mood Description: Constricted and Depressed Affect Description: Constricted Patient Cognition Impaired: No Ability to Follow Directions: Good Speech Pattern: Spontaneous Speech Memory Description: Intact Hallucinations: None (denies) Delusions: Paranoid Ideation Thought Process: Distracted and Rumination Thought Content: positive for [place], positive for Circumstantial, positive for Suicidal Ideation (denies) and positive for Homicidal Ideation (denies) Depressive Symptoms: Sleeping More Than Usual and Loss of Energy Judgement: Fair Diagnostics Vital Signs (24Hr): Vital Signs - 24 hr 12/07/22 19:16 12/08/22 06:00 Temperature 97.9 F 97.3 F Pulse Rate 93 88 Respiratory Rate 14 Blood Pressure 132/77 129/79 Pulse Oximetry 99 Oxygen Delivery Method Room Air Labs 12/08/22 08:55 12/08/22 08:55 Labs: Laboratory Results - last 48 hr 12/08/22 12/08/22 08:55 08:55 WBC 6.0 RBC 5.71 Hgb 14.5 Hct 44.7 MCV 78.3 L MCH 25.4 L MCHC 32.4 RDW 14.9 Plt Count 253 MPV 9.8 Immature Gran % (Auto) 1.5 H Neut % (Auto) 67.6 Lymph % (Auto) 23.3 [place] % (Auto) 6.3 Eos % (Auto) 1.0 Baso % (Auto) 0.3 Lymph # (Auto) 1.4 [place] # (Auto) 0.4 Eos # (Auto) 0.1 Baso # (Auto) 0.0 Abs Immat Gran (auto) 0.09 H Absolute Neuts (auto) 4.1 Absolute Nucleated RBC 0.000 Nucleated RBC % (auto) 0.0 Sodium 142 Potassium 4.3 Chloride 107 Carbon Dioxide 26 Anion Gap 13 BUN 8 L Creatinine 0.81 Estim Creat Clear Calc TNP Estimated GFR > 60 Fasting Glucose 116 H Calcium 9.6 Total Bilirubin 0.3 AST 24 ALT 45 H Alkaline Phosphatase 72 Total Protein 7.0 Albumin 4.2 Medications Medications Current Medications Acetaminophen (Acetaminophen 325 Mg Tablet) 650 mg PO Q6H PRN PRN Reason: Headache/Pain Mild Scale (1-3) Al Hydroxide/Mg Hydroxide (Magnesium Hydrox/Alum Hydrox 30 Ml Oral.Susp) 30 ml PO Q6H PRN PRN Reason: Heartburn/Nausea Benztropine Mesylate (Benztropine Mesylate 1 Mg Tablet) 1 mg PO BID PRN PRN Reason: Extrapyramidal Effects Hydroxyzine HCl (Hydroxyzine Hcl 25 Mg Tablet) 25 mg PO Q6H PRN PRN Reason: Anxiety Last Admin: 12/05/22 21:18 Dose: 25 mg Ibuprofen (Ibuprofen 400 Mg Tablet) 400 mg PO Q6H PRN PRN Reason: Pain, Mild (Pain Scale 1-3) Lorazepam (Lorazepam 1 Mg Tablet) 1 mg PO Q6H PRN PRN Reason: Anxiety Last Admin: 12/06/22 08:58 Dose: 1 mg Magnesium Hydroxide (Milk Of Magnesia 30 Ml Oral.Susp) 30 ml PO DAILY PRN PRN Reason: Constipation Mirtazapine (Mirtazapine 15 Mg Tablet) 15 mg PO BEDTIME [facility] Last Admin: 12/07/22 20:07 Dose: 15 mg Risperidone (Risperidone 1 Mg Tablet) 1 mg PO BID PRN PRN Reason: psychosis Risperidone (Risperidone 2 Mg Tablet) 2 mg PO BID [facility] Last Admin: 12/08/22 08:17 Dose: 2 mg Sertraline HCl (Sertraline Hcl 25 Mg Tablet) 75 mg PO BID [facility] Last Admin: 12/08/22 08:17 Dose: 75 mg Trazodone HCl (Trazodone Hcl 50 Mg Tablet) 50 mg PO BEDTIME MRX1 PRN PRN Reason: Insomnia Last Admin: 11/29/22 20:36 Dose: 50 mg Vitamin D (Cholecalciferol (Vitamin D3) 10 Mcg Tablet) 10 mcg PO DAILY [facility] Last Admin: 12/08/22 08:18 Dose: 10 mcg Allergies Allergies Allergy/AdvReac Type Severity Reaction Status Date / Time Pork/Porcine Containing Allergy Unknown Verified 11/29/22 00:56 Products Assessment & Plan Assessment & Plan (1) Routine medical exam: Status: Acute Code(s): Z00.00 - Encounter for general adult medical examination without abnormal findings Plan 12/06/22: Tolerating Sertraline. Contniue current plan. Family meeting 12/08/22. 12/07/22: Continue current plan 12/08/22: Discharge early next week. Patient educated on: therapeutic strategies Informed Consent: understands and further education needed Reason for contiued inpatient stay Substantial Risk for: rapid decompensation Time Spent With Patient Time: Total time managing care of this patient today 45 minutes.
[2022-12-08 18:50] VITALS: BP 115/74; PULSE 108; RESP 14; TEMP 36.2; O2SAT 97
[2022-12-08] MEDS: Mirtazapine 15 MG TABLET PO (22:05)
[2022-12-09] MEDS: Sertraline HCL 25 MG TABLET 75 MG PO ×2 (08:21→20:16)
[2022-12-09] MEDS: Cholecalciferol (Vitamin D3) 10 MCG TABLET PO (08:21)
[2022-12-09] MEDS: risperiDONE 2 MG TABLET PO ×2 (08:21→20:17)
[2022-12-09 08:23] VITALS: BP 116/85; PULSE 95; RESP 18; TEMP 36.1; O2SAT 98
--- NOTE | 2022-12-09 12:40 | HO.PSYCHPN ---
Subjective Subjective Date of Service: 12/09/22 Reason For Visit: Paranoid Schizophrenia Interim History: Patient continues to report improvements with medicines, however pt remains isolative, not participating in milieu. Needs a lot of encouragement to participate in the milieu. Says AH subsided. No SI Review of Systems Review of Systems General: No fevers, malaise, unintentional weight loss HEENT: No blurred vision, diplopia. No sore throat, nasal congestion, rhinorrhea, sinus pain, ear pain Cardiovascular: No chest pain, palpitations, or leg edema Respiratory: No shortness of breath, wheezing, cough GI: No abdominal pain, nausea, vomiting, diarrhea, constipation, melena, hematochezia : No dysuria, hematuria, increased urinary frequency, decreased urinary output MSK: No myalgia, back pain Neuro: No headaches, weakness, paresthesias Skin: No rashes or lesions Yes all other systems are reviewed and are negative Reports behavioral changes Psychiatric: Reports abnormal sleep pattern, Reports anxiety, Reports behavioral changes, Reports depression, Reports difficulty concentrating, Reports auditory hallucinations, Reports hopelessness, Reports anhedonia, Reports hallucinations and Reports suicidal ideation Mental Status Exam Mental Status Exam Narrative: In today's visit he was in bed. He is alert, pleasant and minimally interactive. Moderate eye contact. Affect is good constricted and flat. He appears to be responding to internal stimuli. He does have some thought blocking. No active SI. Cognitively he has paucity of thought and blocking. Judgment is marginal Patient Appearance: Appropriate Patient Orientation: Person, Place, Time and Situation Level of Consciousness: Alert Patient Behavior: Guarded, Talkative and Good Eye Contact Mood Description: Constricted and Depressed Affect Description: Constricted Patient Cognition Impaired: No Ability to Follow Directions: Good Speech Pattern: Spontaneous Speech Memory Description: Intact Diagnostics Vital Signs (24Hr): Vital Signs - 24 hr 12/09/22 08:23 12/09/22 18:00 Temperature 96.9 F 97.8 F Pulse Rate 95 102 H Respiratory Rate 18 16 Blood Pressure 116/85 119/69 Pulse Oximetry 98 97 Oxygen Delivery Method Room Air Room Air Labs 12/08/22 08:55 12/08/22 08:55 Labs: Laboratory Results - last 48 hr 12/08/22 12/08/22 08:55 08:55 WBC 6.0 RBC 5.71 Hgb 14.5 Hct 44.7 MCV 78.3 L MCH 25.4 L MCHC 32.4 RDW 14.9 Plt Count 253 MPV 9.8 Immature Gran % (Auto) 1.5 H Neut % (Auto) 67.6 Lymph % (Auto) 23.3 [place] % (Auto) 6.3 Eos % (Auto) 1.0 Baso % (Auto) 0.3 Lymph # (Auto) 1.4 [place] # (Auto) 0.4 Eos # (Auto) 0.1 Baso # (Auto) 0.0 Abs Immat Gran (auto) 0.09 H Absolute Neuts (auto) 4.1 Absolute Nucleated RBC 0.000 Nucleated RBC % (auto) 0.0 Sodium 142 Potassium 4.3 Chloride 107 Carbon Dioxide 26 Anion Gap 13 BUN 8 L Creatinine 0.81 Estim Creat Clear Calc TNP Estimated GFR > 60 Fasting Glucose 116 H Calcium 9.6 Total Bilirubin 0.3 AST 24 ALT 45 H Alkaline Phosphatase 72 Total Protein 7.0 Albumin 4.2 Medications Medications Current Medications Acetaminophen (Acetaminophen 325 Mg Tablet) 650 mg PO Q6H PRN PRN Reason: Headache/Pain Mild Scale (1-3) Al Hydroxide/Mg Hydroxide (Magnesium Hydrox/Alum Hydrox 30 Ml Oral.Susp) 30 ml PO Q6H PRN PRN Reason: Heartburn/Nausea Benztropine Mesylate (Benztropine Mesylate 1 Mg Tablet) 1 mg PO BID PRN PRN Reason: Extrapyramidal Effects Hydroxyzine HCl (Hydroxyzine Hcl 25 Mg Tablet) 25 mg PO Q6H PRN PRN Reason: Anxiety Last Admin: 12/05/22 21:18 Dose: 25 mg Ibuprofen (Ibuprofen 400 Mg Tablet) 400 mg PO Q6H PRN PRN Reason: Pain, Mild (Pain Scale 1-3) Lorazepam (Lorazepam 1 Mg Tablet) 1 mg PO Q6H PRN PRN Reason: Anxiety Last Admin: 12/09/22 20:17 Dose: 1 mg Magnesium Hydroxide (Milk Of Magnesia 30 Ml Oral.Susp) 30 ml PO DAILY PRN PRN Reason: Constipation Mirtazapine (Mirtazapine 15 Mg Tablet) 15 mg PO BEDTIME [facility] Last Admin: 12/09/22 20:17 Dose: 15 mg Risperidone (Risperidone 1 Mg Tablet) 1 mg PO BID PRN PRN Reason: psychosis Risperidone (Risperidone 2 Mg Tablet) 2 mg PO BID [facility] Last Admin: 12/09/22 20:17 Dose: 2 mg Sertraline HCl (Sertraline Hcl 25 Mg Tablet) 75 mg PO BID [facility] Last Admin: 12/09/22 20:16 Dose: 75 mg Trazodone HCl (Trazodone Hcl 50 Mg Tablet) 50 mg PO BEDTIME MRX1 PRN PRN Reason: Insomnia Last Admin: 12/09/22 20:18 Dose: 50 mg Vitamin D (Cholecalciferol (Vitamin D3) 10 Mcg Tablet) 10 mcg PO DAILY [facility] Last Admin: 12/09/22 08:21 Dose: 10 mcg Allergies Allergies Allergy/AdvReac Type Severity Reaction Status Date / Time Pork/Porcine Containing Allergy Unknown Verified 11/29/22 00:56 Products Assessment & Plan Assessment & Plan (1) Routine medical exam: Status: Acute Code(s): Z00.00 - Encounter for general adult medical examination without abnormal findings Plan 12/06/22: Tolerating Sertraline. Contniue current plan. Family meeting 12/08/22. 12/07/22: Continue current plan 12/08/22: Discharge early next week. 12/09: Continue tx plan Reason for contiued inpatient stay Substantial Risk for: inability to function and rapid decompensation Time Spent With Patient Time: Total time managing care of this patient today ____ minutes.
[2022-12-09 18:00] VITALS: BP 119/69; PULSE 102; RESP 16; TEMP 36.6; O2SAT 97
[2022-12-09] MEDS: Mirtazapine 15 MG TABLET PO (20:17)
[2022-12-09] MEDS: LORazepam 1 MG TABLET PO (20:17)
[2022-12-09] MEDS: traZODone HCL 50 MG TABLET PO (20:18)
[2022-12-10 06:00] VITALS: BP 117/67; PULSE 80; RESP 18; TEMP 36.4; O2SAT 98
[2022-12-10] MEDS: Cholecalciferol (Vitamin D3) 10 MCG TABLET PO (08:19)
[2022-12-10] MEDS: risperiDONE 2 MG TABLET PO ×2 (08:19→20:10)
[2022-12-10] MEDS: Sertraline HCL 25 MG TABLET 75 MG PO ×2 (08:19→20:10)
--- NOTE | 2022-12-10 12:50 | P.PNPSI_ITS ---
Subjective Subjective Date of Service: 12/10/22 Reason For Visit: Paranoid Schizophrenia Interim History: Patient continues to report improvements with medicines. More visible on the unit. Going out of his room more. Sleep improved. Needs some encouragement to participate in the milieu. Says AH subsided. No SI Eager for possible DC tomorrow. Review of Systems Review of Systems General: No fevers, malaise, unintentional weight loss HEENT: No blurred vision, diplopia. No sore throat, nasal congestion, rhino rrhea, sinus pain, ear pain Cardiovascular: No chest pain, palpitations, or leg edema Respiratory: No shortness of breath, wheezing, cough GI: No abdominal pain, nausea, vomiting, diarrhea, constipation, melena, hematochezia : No dysuria, hematuria, increased urinary frequency, decreased urinary output MSK: No myalgia, back pain Neuro: No headaches, weakness, paresthesias Skin: No rashes or lesions Yes all other systems are reviewed and are negative Reports behavioral changes Psychiatric: Reports abnormal sleep pattern, Reports anxiety, Reports behavioral changes, Reports depression, Reports difficulty concentrating, Reports auditory hallucinations, Reports hopelessness, Reports anhedonia, Reports hallucinations and Reports suicidal ideation Mental Status Exam Mental Status Exam Narrative: In today's visit he was in bed. He is alert, pleasant and minimally int eractive. Moderate eye contact. Affect is good constricted and flat. He appears to be responding to internal stimuli. He does have some thought blocking. No active SI. Cognitively he has paucity of thought and blocking. Judgment is marginal Patient Appearance: Appropriate Patient Orientation: Person, Place, Time and Situation Level of Consciousness: Alert Patient Behavior: Guarded, Talkative and Good Eye Contact Mood Description: Constricted and Depressed Affect Description: Constricted Patient Cognition Impaired: No Ability to Follow Directions: Good Speech Pattern: Spontaneous Speech Memory Description: Intact Diagnostics Vital Signs (24Hr): Vital Signs - 24 hr 12/10/22 06:00 12/10/22 16:50 Temperature 97.6 F 98.2 F Pulse Rate 80 85 Respiratory Rate 18 Blood Pressure 117/67 97/58 L Pulse Oximetry 98 97 Oxygen Delivery Method Room Air Room Air Labs 12/08/22 08:55 12/08/22 08:55 Medications Medications Current Medications Acetaminophen (Acetaminophen 325 Mg Tablet) 650 mg PO Q6H PRN PRN Reason: Headache/Pain Mild Scale (1-3) Al Hydroxide/Mg Hydroxide (Magnesium Hydrox/Alum Hydrox 30 Ml Oral.Susp) 30 ml PO Q6H PRN PRN Reason: Heartburn/Nausea Benztropine Mesylate (Benztropine Mesylate 1 Mg Tablet) 1 mg PO BID PRN PRN Reason: Extrapyramidal Effects Hydroxyzine HCl (Hydroxyzine Hcl 25 Mg Tablet) 25 mg PO Q6H PRN PRN Reason: Anxiety Last Admin: 12/05/22 21:18 Dose: 25 mg Ibuprofen (Ibuprofen 400 Mg Tablet) 400 mg PO Q6H PRN PRN Reason: Pain, Mild (Pain Scale 1-3) Lorazepam (Lorazepam 1 Mg Tablet) 1 mg PO Q6H PRN PRN Reason: Anxiety Last Admin: 12/09/22 20:17 Dose: 1 mg Magnesium Hydroxide (Milk Of Magnesia 30 Ml Oral.Susp) 30 ml PO DAILY PRN PRN Reason: Constipation Mirtazapine (Mirtazapine 15 Mg Tablet) 15 mg PO BEDTIME [facility] Last Admin: 12/10/22 20:10 Dose: 15 mg Risperidone (Risperidone 1 Mg Tablet) 1 mg PO BID PRN PRN Reason: psychosis Risperidone (Risperidone 2 Mg Tablet) 2 mg PO BID [facility] Last Admin: 12/10/22 20:10 Dose: 2 mg Sertraline HCl (Sertraline Hcl 25 Mg Tablet) 75 mg PO BID [facility] Last Admin: 12/10/22 20:10 Dose: 75 mg Trazodone HCl (Trazodone Hcl 50 Mg Tablet) 50 mg PO BEDTIME MRX1 PRN PRN Reason: Insomnia Last Admin: 12/09/22 20:18 Dose: 50 mg Vitamin D (Cholecalciferol (Vitamin D3) 10 Mcg Tablet) 10 mcg PO DAILY [facility] Last Admin: 12/10/22 08:19 Dose: 10 mcg Allergies Allergies Allergy/AdvReac Type Severity Reaction Status Date / Time Pork/Porcine Containing Allergy Unknown Verified 11/29/22 00:56 Products Assessment & Plan Assessment & Plan (1) Routine medical exam: Status: Acute Code(s): Z00.00 - Encounter for general adult medical examination without abnormal findings Plan 12/06/22: Tolerating Sertraline. Contniue current plan. Family meeting 12/08/22. 12/07/22: Continue current plan 12/08/22: Discharge early next week. 12/09: Continue tx plan 12/10: Continue tx plan. Reason for contiued inpatient stay Substantial Risk for: inability to function and rapid decompensation Time Spent With Patient Time: Total time managing care of this patient today ____ minutes.
[2022-12-10 16:50] VITALS: BP 97/58; PULSE 85; TEMP 36.8; O2SAT 97
[2022-12-10] MEDS: Mirtazapine 15 MG TABLET PO (20:10)
[2022-12-11 07:49] VITALS: BP 119/71; PULSE 90; RESP 16; TEMP 36.3; O2SAT 99
[2022-12-11] MEDS: Cholecalciferol (Vitamin D3) 10 MCG TABLET PO (08:29)
[2022-12-11] MEDS: Sertraline HCL 25 MG TABLET 75 MG PO (08:29)
[2022-12-11] MEDS: risperiDONE 2 MG TABLET PO (08:29)
--- NOTE | 2022-12-11 13:02 | PM.PSYDC ---
DS: Providers Provider Date of Service: 12/11/22 Date of admission: 11/29/22 00:50 Date of discharge: 12/11/22 Primary care physician: Unknown Physician Admitting clinician: Sisi Mendoza Attending physician on admission: Lance Veloz Consults: 12/05/22 12:36 Consult to Hospitalist Routine Consulting Provider: Hospitalist Reason For Exam: admission PE, transfer from another facility Attending physician on discharge: Lance Veloz Discharging clinician: Sisi Mendoza DS: Diagnosis Discharge Diagnosis (1) Schizoaffective disorder: Status: Acute DS: Medications Discharge Medications Home Medications: Previous Rx's Medication Instructions Recorded benztropine 1 mg tablet 1 mg PO BID PRN Extrapyramidal 12/11/22 Effects #60 tabs cholecalciferol (vitamin D3) 10 10 mcg PO DAILY #30 tabs 12/11/22 mcg (400 unit) tablet (Vitamin D3) mirtazapine 15 mg tablet 15 mg PO BEDTIME #30 tabs 12/11/22 risperidone 2 mg tablet 2 mg PO BID #60 tabs 12/11/22 sertraline 25 mg tablet 75 mg PO BID #180 tabs 12/11/22 Mental Status Exam Mental Status Exam Patient Appearance: Appropriate Patient Orientation: Person, Place, Time and Situation Level of Consciousness: Alert Patient Behavior: Guarded, Talkative and Good Eye Contact Mood Description: Constricted and Depressed Affect Description: Constricted Patient Cognition Impaired: No Ability to Follow Directions: Good Speech Pattern: Spontaneous Speech Memory Description: Intact Hallucinations: None (denies) Delusions: Paranoid Ideation Thought Process: Distracted and Rumination Thought Content: positive for [place], positive for Circumstantial, positive for Suicidal Ideation (denies) and positive for Homicidal Ideation (denies) Depressive Symptoms: Sleeping More Than Usual and Loss of Energy Judgement: Fair Data Data Completed and Pending Completed studies during hospitalization [Text1]: 12/08/22 12/08/22 08:55 08:55 WBC 6.0 RBC 5.71 Hgb 14.5 Hct 44.7 MCV 78.3 L MCH 25.4 L MCHC 32.4 RDW 14.9 Plt Count 253 MPV 9.8 Immature Gran % (Auto) 1.5 H Neut % (Auto) 67.6 Lymph % (Auto) 23.3 [place] % (Auto) 6.3 Eos % (Auto) 1.0 Baso % (Auto) 0.3 Lymph # (Auto) 1.4 [place] # (Auto) 0.4 Eos # (Auto) 0.1 Baso # (Auto) 0.0 Abs Immat Gran (auto) 0.09 H Absolute Neuts (auto) 4.1 Absolute Nucleated RBC 0.000 Nucleated RBC % (auto) 0.0 Sodium 142 Potassium 4.3 Chloride 107 Carbon Dioxide 26 Anion Gap 13 BUN 8 L Creatinine 0.81 Estim Creat Clear Calc TNP Estimated GFR > 60 Fasting Glucose 116 H Calcium 9.6 Total Bilirubin 0.3 AST 24 ALT 45 H Alkaline Phosphatase 72 Total Protein 7.0 Albumin 4.2 DS: Summary Hospital Course Hospital Course: Admission to adult psychiatry for exacerbation of schizoaffective disorder, depressed type due to pt stopping and re-starting medications, developing covid and experiencing increase in symptoms. Pt's regime was re-established and titrated. He refused collateral contact with his out patient provider. His mother and aunt were helpful in giving feedback about his return to baseline and readiness to return to home. Their expertise was helpful and pt was discharged to their care when improved. Time spent discussing smoking cessation with patient: 3 to 10 minutes Status at Discharge Functional status at discharge: independent ambulation Overall status at discharge: patient is back to baseline Time Spent with Patient Time attestation: Total time managing care of this patient today ____ minutes. Time spent: Greater than 30 minutes Discharge Plan Discharge Anticipated Discharge Date/Time: 12/11/22 11:00 Patient Disposition: Home, Self-Care Discharge Diagnosis: Schizoaffective Disorder, Depressed Referrals: Adelita Brown MD: [facility] [place] [Other] - 12/11/22 2:40 pm (Follow-up discharge appointment with psychiatric medication provider) Alana Glasgow: [facility] [Other] - 12/26/22 12:30 pm (Patient follow-up discharge appointment with therapist Appointment in person at [facility] in [place]) AMAURY BORGES [[facility]] - 12/21/22 11:10 am (in office) Discharge Medications: New risperidone 2 mg Tablet 2 mg PO BID Qty: 60 0RF benztropine 1 mg Tablet 1 mg PO BID PRN (Reason: Extrapyramidal Effects) Qty: 60 0RF sertraline 25 mg Tablet 75 mg PO BID Qty: 180 0RF mirtazapine 15 mg Tablet 15 mg PO BEDTIME Qty: 30 0RF cholecalciferol (vitamin D3) [Vitamin D3] 10 mcg (400 unit) Tablet 10 mcg PO DAILY Qty: 30 0RF Discontinued benztropine 0.5 mg tablet 1 mg PO trazodone 50 mg Tablet 25 mg PO DAILY PRN (Reason: Insomnia) hydroxyzine HCl 50 mg Tablet 50 mg PO Q6H PRN (Reason: Anxiety) acetaminophen 650 mg Tablet 650 mg PO Q6H PRN (Reason: Pain) ibuprofen 400 mg Tablet 400 mg PO Q8H PRN (Reason: Pain) lorazepam 1 mg Tablet 1 mg PO Q8H PRN (Reason: Anxiety) sertraline 50 mg Tablet 50 mg PO BID risperidone [Risperdal] 1 mg Tablet 1 mg PO BID risperidone [Risperdal] 1 mg Tablet 1 mg PO BID PRN (Reason: Agitation) melatonin 10 mg Tablet 9 mg PO DAILY Discharge Orders: Discharge Order (Routine); Ordered 12/11/22 Ordered By: Sisi Mendoza Diet: Advance to usual diet Activity on Discharge: As tolerated Stand Alone Forms: Patient Portal Discharge page, Community Support Care Plan Goals: Mood and behavioral stabilization Health Concerns: Mood and behavioral stabilization Plan of Treatment: Connect with out patient providers Practice coping skills Take medications as directed Call/Return as needed Assessment: non psychotic, non manic non suicidal, non homicidal Discharge Date/Time: 12/11/22 11:30
== END 2022-12-11 11:30 | disposition home or self-care (01) | DRG 750 ==
PROVIDERS: Admitting Provider Psychiatry & Neurology Psychiatry; Visit Provider Clinical Nurse Specialist Psychiatric/Mental Health, Adult
DX: F25.1 Schizoaffective disorder, depressive type (principal); Z79.899 Other long term (current) drug therapy
CPT/HCPCS: 36415; 80053; 80061; 82306; 82607; 82746; 83036; 83735; 84439; 84443; 85025; 93005